=== PATIENT | male | born 1965 | race Caucasian/White ===

== ENCOUNTER 2018-05-30 13:07 | Observation (INO) | payer BC, OTHER ==
[~2018-05-30] VITALS: Ht 170.2 cm; Wt 97.5 kg
[2018-05-30] VITALS (9 sets, daily range): BP systolic 121–160; BP diastolic 79–88
--- OUTSIDE RECORDS SUMMARY | 2018-05-30 13:14 | XMS REPORT | Clinical Summary ---
Author Author Admin, GEOVANNA Organization [facility] Address Unknown Phone Unavailable Allergies, Adverse Reactions, Alerts Allergy Name Reaction Description Start Date Severity Status Provider No Known Allergies Keiko Noble Conditions or Problems Problem Name Problem Code Onset Date Status Entry Date Provider Comment Standard Description Annotate Flu syndrome 487.1 Active Darien Hernandez MD Influenza with other respiratory manifestations Medication List Medication Instructions Start Date Stop Date Generic Name NDC Status Provider Patient Instruction ZITHROMAX Z-ABDOUL 250 MG TABS 2 today, then 1 daily for 4 days 2016 AZITHROMYCIN 14667456333 No Longer Active Diane Chery Active SIMVASTATIN 20 MG TABS 1 tab daily at bedtime SIMVASTATIN 38494120879 Active Darien Hernandez MD Active RITALIN 10 MG TAB 1 TAB PO BID METHYLPHENIDATE HCL 90356432459 Active Darien Hernandez MD Active ZITHROMAX Z-ABDOUL 250 MG TABS 2 today, then 1 daily for 4 days 2016 ZITHROMAX Z-ABDOUL 250 MG TABS 3064315 AZITHROMYCIN Inactive Vital Signs Date Name Value Unit Range Description blood pressure, diastolic - 8462-4 83 mm[Hg] BP bro blood pressure, systolic - 8480-6 133 mm[Hg] BP sys pulse rate E&M - 8867-4 100 /min Heart rate temperature E&M 100.2 [degF] Body temperature weight E&M - 3141-9 215 [lb_av] Weight Measured Diagnostic Results Date Name Value Unit Range Description Lab Report: LORY INFLUENZA A/B - Toxicology rapid flu test Influenza A Positive Negative;Positive Encounters Code Encounter Date Provider Facility CPT-18601 Level 3 Est. Patient 09:28:01 JAWBONE BREAKER Darien Hernandez MD [facility] Procedures Code Procedure Name Date Entry Date Standard Description CPT-01956 Lory Flu A/B - LAB USE ONLY 14:39:20 JAWBONE BREAKER CPT-64963 Myco. Pneumo - LAB USE ONLY 14:39:20 JAWBONE BREAKER CPT-93559 Venipuncture Draw Fee 14:39:19 JAWBONE BREAKER
--- OUTSIDE RECORDS SUMMARY | 2018-05-30 13:14 | XMS REPORT | Clinical Summary ---
Author Author Admin, GEOVANNA Organization [facility] Address Unknown Phone Unavailable Allergies, Adverse Reactions, [...] 1 daily for 4 days 2016 AZITHROMYCIN 25636907695 Active Diane Chery Active SIMVASTATIN 20 MG TABS 1 tab daily at bedtime SIMVASTATIN 99728415867 Active Darien Hernandez MD Active RITALIN 10 MG TAB 1 TAB PO BID METHYLPHENIDATE HCL 66407535781 Active Darien Hernandez MD Active Vital Signs Date Name Value Unit Range Description blood pressure, diastolic - 8462-4 83 mm[Hg] BP bro blood pressure, systolic - 8480-6 133 mm[Hg] BP sys pulse rate E&M - 8867-4 100 /min Heart rate temperature E&M 100.2 [degF] Body temperature weight E&M - 3141-9 215 [lb_av] Weight Measured Diagnostic Results Date Name Value Unit Range Description Lab Report: TERRI INFLUENZA A/B - Toxicology rapid flu test Influenza A Positive Negative;Positive Encounters Code Encounter Date Provider Facility CPT-25924 Level 3 Est. Patient 09:28:01 [facility] Darien Hernandez MD [facility]
--- OUTSIDE RECORDS SUMMARY | 2018-05-30 13:14 | XMS REPORT | Clinical Summary ---
Author Author Admin, GEOVANNA Organization [facility] Address Unknown Phone Unavailable Allergies, Adverse Reactions, Alerts Allergy Name Reaction Description Start Date Severity Status Provider No Known Allergies Neishamaximilian Swenson EDWAR Conditions or Problems Problem Name Problem Code Onset Date Status Entry Date Provider Comment Standard Description Annotate Flu syndrome 487.1 Active Darien Hernandez MD Influenza with other respiratory manifestations Cough 786.2 Active Lety Shrestha APRN Cough Medication List Medication Instructions Start Date Stop Date Generic Name NDC Status Provider Patient Instruction HYDROCODONE-ACETAMINOPHEN 7.5-325 MG ORAL TABLET once daily as needed for pain HYDROCODONE-ACETAMINOPHEN 32534024339 Active Lety Shrestha APRN Active AMBIEN 10 MG ORAL TABLET 1 tab by mouth at bedtime as needed for sleep 07/03 ZOLPIDEM TARTRATE 65581243273 Active Lety Shrestha APRN Active RITALIN 10 MG ORAL TABLET 1 TAB PO BID METHYLPHENIDATE HCL 43289836449 No Longer Active Lety Shrestha APRN Active ZITHROMAX Z-ABDOUL 250 MG ORAL TABLET 2 today, then 1 daily for 4 days AZITHROMYCIN 63095353635 No Longer Active Dianeclemente Gilida Active SIMVASTATIN 20 MG ORAL TABLET 1 tab daily at bedtime SIMVASTATIN 88302111354 Active Darien Hernandez MD Active RITALIN 10 MG ORAL TABLET 1 TAB PO BID RITALIN 10 MG ORAL TABLET 3336244 METHYLPHENIDATE HCL Inactive ZITHROMAX Z-ABDOUL 250 MG ORAL TABLET 2 today, then 1 daily for 4 days ZITHROMAX Z-ABDOUL 250 MG ORAL TABLET 240171 AZITHROMYCIN Inactive Vital Signs Date Name Value Unit Range Description blood pressure, diastolic 82 mm[Hg] BP bro blood pressure, systolic 144 mm[Hg] BP sys height E&M 67 [in_us] Bdy height pulse rate E&M 81 /min Heart rate temperature E&M 98.7 [degF] Body temperature weight E&M 216.5 [lb_av] Weight Measured blood pressure, diastolic 83 mm[Hg] BP bro blood pressure, systolic 133 mm[Hg] BP sys pulse rate E&M 100 /min Heart rate temperature E&M 100.2 [degF] Body temperature weight E&M 215 [lb_av] Weight Measured Diagnostic Results Date Name Value Unit Range Description Lab Report: LORY INFLUENZA A/B - Toxicology rapid flu test Influenza A Positive Negative;Positive Encounters Code Encounter Date Provider Facility CPT-61702 Level 3 Est. Patient 16:57:10 CENTRAL SUPPLY MANAGER Lety Shrestha APRN [facility] CPT-63724 Level 3 Est. Patient 09:28:01 CENTRAL SUPPLY MANAGER Darien Hernandez MD [facility] Procedures Code Procedure Name Date Entry Date Standard Description CPT-14627 Breathing Treatment 16:57:10 CENTRAL SUPPLY MANAGER CPT-99039 Lory Flu A/B - LAB USE ONLY 14:39:20 CENTRAL SUPPLY MANAGER CPT-33772 Myco. Pneumo - LAB USE ONLY 14:39:20 CENTRAL SUPPLY MANAGER CPT-56467 Venipuncture Draw Fee 14:39:19 CENTRAL SUPPLY MANAGER
--- OUTSIDE RECORDS SUMMARY | 2018-05-30 13:14 | XMS REPORT | Clinical Summary ---
Author Author Admin, GEOVANNA Organization [facility] Address Unknown Phone Unavailable Allergies, Adverse Reactions, Alerts Allergy Name Reaction Description Start Date Severity Status Provider No Known Allergies Neisha Swenson EDWAR Conditions or Problems Problem Name [...] once daily as needed for pain HYDROCODONE-ACETAMINOPHEN 37292386722 Active Lety Shrestha APRN Active AMBIEN 10 MG ORAL TABLET 1 tab by mouth at bedtime as needed for sleep 07/03 ZOLPIDEM TARTRATE 36406873403 Active eLty Shrestha APRN Active RITALIN 10 MG ORAL TABLET 1 TAB PO BID METHYLPHENIDATE HCL 08095591778 No Longer Active Lety Shrestha APRN Active ZITHROMAX Z-ABDOUL 250 MG ORAL TABLET 2 today, then 1 daily for 4 days AZITHROMYCIN 69248160530 No Longer Active Dianeclemente Cehry Active SIMVASTATIN 20 MG ORAL TABLET 1 tab daily at bedtime SIMVASTATIN 44642732645 Active Darien Hernandez MD Active RITALIN 10 MG ORAL TABLET 1 TAB PO BID RITALIN 10 MG ORAL TABLET 6561129 METHYLPHENIDATE HCL Inactive ZITHROMAX Z-ABDOUL 250 MG ORAL TABLET 2 today, then 1 daily for 4 days ZITHROMAX Z-ABDOUL 250 MG ORAL TABLET 788712 AZITHROMYCIN Inactive Vital Signs Date Name Value [...] Negative;Positive Encounters Code Encounter Date Provider Facility CPT-66864 Level 3 Est. Patient 16:57:10 CHIEF ADMINISTRATIVE OFFICER Lety Shrestha APRN [facility] CPT-44923 Level 3 Est. Patient 09:28:01 CHIEF ADMINISTRATIVE OFFICER Darien Hernandez MD [facility] Procedures Code Procedure Name Date Entry Date Standard Description CPT-74245 Breathing Treatment 16:57:10 CHIEF ADMINISTRATIVE OFFICER CPT-13887 Lory Flu A/B - LAB USE ONLY 14:39:20 CHIEF ADMINISTRATIVE OFFICER CPT-92465 Myco. Pneumo - LAB USE ONLY 14:39:20 CHIEF ADMINISTRATIVE OFFICER CPT-33849 Venipuncture Draw Fee 14:39:19 CHIEF ADMINISTRATIVE OFFICER
--- OUTSIDE RECORDS SUMMARY | 2018-05-30 13:14 | XMS REPORT | Clinical Summary ---
Author Author Admin, GEOVANNA Organization [facility] Address Unknown Phone Unavailable Allergies, Adverse Reactions, [...] once daily as needed for pain HYDROCODONE-ACETAMINOPHEN 40950892659 Active Lety Shrestha APRN Active AMBIEN 10 MG ORAL TABLET 1 tab by mouth at bedtime as needed for sleep 07/03 ZOLPIDEM TARTRATE 33023304325 Active Lety Shrestha APRN Active RITALIN 10 MG ORAL TABLET 1 TAB PO BID METHYLPHENIDATE HCL 65197753842 No Longer Active Lety Shrestha APRN Active ZITHROMAX Z-ABDOUL 250 MG ORAL TABLET 2 today, then 1 daily for 4 days AZITHROMYCIN 82576096387 No Longer Active Dianeclemente Gilida Active SIMVASTATIN 20 MG ORAL TABLET 1 tab daily at bedtime SIMVASTATIN 71711902846 Active Darien Hernandez MD Active RITALIN 10 MG ORAL TABLET 1 TAB PO BID RITALIN 10 MG ORAL TABLET 1433950 METHYLPHENIDATE HCL Inactive ZITHROMAX Z-ABDOUL 250 MG ORAL TABLET 2 today, then 1 daily for 4 days ZITHROMAX Z-ABDOUL 250 MG ORAL TABLET 857138 AZITHROMYCIN Inactive Vital Signs Date Name Value [...] Negative;Positive Encounters Code Encounter Date Provider Facility CPT-62656 Level 3 Est. Patient 16:57:10 TYPE INSPECTOR Lety Shrestha APRN [facility] CPT-78875 Level 3 Est. Patient 09:28:01 TYPE INSPECTOR Darien Hernandez MD [facility] Procedures Code Procedure Name Date Entry Date Standard Description CPT-30927 Breathing Treatment 16:57:10 TYPE INSPECTOR CPT-43823 Lory Flu A/B - LAB USE ONLY 14:39:20 TYPE INSPECTOR CPT-98285 Myco. Pneumo - LAB USE ONLY 14:39:20 TYPE INSPECTOR CPT-40724 Venipuncture Draw Fee 14:39:19 TYPE INSPECTOR
--- OUTSIDE RECORDS SUMMARY | 2018-05-30 13:14 | XMS REPORT | Clinical Summary ---
Author Author Admin, Wayne Organization [facility] Address Unknown Phone Unavailable Allergies, Adverse Reactions, Alerts Allergy Name Reaction Description Start Date Severity Status Provider No Known Allergies Keiko Real Conditions or Problems Problem Name Problem Code Onset Date Status Entry Date Provider Comment Standard Description Annotate Flu syndrome 487.1 Active Darien Hernandez MD Influenza with other respiratory manifestations Medication List Medication Instructions Start Date Stop Date Generic Name NDC Status Provider Patient Instruction SIMVASTATIN 20 MG TABS 1 tab daily at bedtime SIMVASTATIN 23912833416 Active Darien Hernandez MD Active RITALIN 10 MG TAB 1 TAB PO BID METHYLPHENIDATE HCL 05417459748 Active Darien Hernandez MD Active Vital Signs Date Name Value Unit Range Description blood pressure, diastolic - 8462-4 83 mm[Hg] BP bro blood pressure, systolic - 8480-6 133 mm[Hg] BP sys pulse rate E&M - 8867-4 100 /min Heart rate temperature E&M 100.2 [degF] Body temperature weight E&M - 3141-9 215 [lb_av] Weight Measured Encounters Code Encounter Date Provider Facility CPT-10337 Level 3 Est. Patient 09:28:01 STATION AGENT Darien Hernandez MD [facility]
--- OUTSIDE RECORDS SUMMARY | 2018-05-30 13:14 | XMS REPORT | Clinical Summary ---
Author Author Admin, GEOVANNA Organization [facility] Address Unknown Phone Unavailable Allergies, Adverse Reactions, [...] 1 daily for 4 days 2016 AZITHROMYCIN 33296506204 No Longer Active Diane Chery Active SIMVASTATIN 20 MG TABS 1 tab daily at bedtime SIMVASTATIN 84746255959 Active Darien Hernandez MD Active RITALIN 10 MG TAB 1 TAB PO BID METHYLPHENIDATE HCL 60283197527 Active Darien Hernandez MD Active ZITHROMAX Z-ABDOUL 250 MG TABS 2 today, then 1 daily for 4 days 2016 ZITHROMAX Z-ABDOLU 250 MG TABS 4055845 AZITHROMYCIN Inactive Vital Signs Date Name Value [...] Negative;Positive Encounters Code Encounter Date Provider Facility CPT-84849 Level 3 Est. Patient 09:28:01 EDGE STITCHER Darien Hernandez MD [facility] Procedures Code Procedure Name Date Entry Date Standard Description CPT-16657 Lory Flu A/B - LAB USE ONLY 14:39:20 EDGE STITCHER CPT-58041 Myco. Pneumo - LAB USE ONLY 14:39:20 EDGE STITCHER CPT-20473 Venipuncture Draw Fee 14:39:19 EDGE STITCHER
--- OUTSIDE RECORDS SUMMARY | 2018-05-30 13:14 | XMS REPORT | Clinical Summary ---
[...] 1 daily for 4 days 2016 AZITHROMYCIN 44291818573 Active Diane Chery Active SIMVASTATIN 20 MG TABS 1 tab daily at bedtime SIMVASTATIN 76335683127 Active Darien Hernandez MD Active RITALIN 10 MG TAB 1 TAB PO BID METHYLPHENIDATE HCL 29110920214 Active Darien Hernandez MD Active Vital Signs [...] Negative;Positive Encounters Code Encounter Date Provider Facility CPT-40028 Level 3 Est. Patient 09:28:01 [facility] Darien Hernandez MD [facility]
--- OUTSIDE RECORDS SUMMARY | 2018-05-30 13:14 | XMS REPORT | Clinical Summary ---
Author Author Admin, GEOVANNA Organization [facility] Address Unknown Phone Unavailable Allergies, Adverse [...] 1 daily for 4 days 2016 AZITHROMYCIN 08528167784 No Longer Active Diane Chery Active SIMVASTATIN 20 MG TABS 1 tab daily at bedtime SIMVASTATIN 99735514435 Active Darien Hernandez MD Active RITALIN 10 MG TAB 1 TAB PO BID METHYLPHENIDATE HCL 11887992602 Active Darien Hernandez MD Active ZITHROMAX Z-ABDOUL 250 MG TABS 2 today, then 1 daily for 4 days 2016 ZITHROMAX Z-ABDOUL 250 MG TABS 4483163 AZITHROMYCIN Inactive Vital Signs Date Name Value [...] Negative;Positive Encounters Code Encounter Date Provider Facility CPT-66810 Level 3 Est. Patient 09:28:01 DRILLER AND REAMER Darien Hernandez MD [facility] Procedures Code Procedure Name Date Entry Date Standard Description CPT-10460 Terri Flu A/B - LAB USE ONLY 14:39:20 DRILLER AND REAMER CPT-30572 Myco. Pneumo - LAB USE ONLY 14:39:20 DRILLER AND REAMER CPT-34754 Venipuncture Draw Fee 14:39:19 DRILLER AND REAMER
--- OUTSIDE RECORDS SUMMARY | 2018-05-30 13:14 | XMS REPORT | Clinical Summary ---
Author Author Admin, GEOVANNA Organization [facility] Address Unknown Phone Unavailable [...] once daily as needed for pain HYDROCODONE-ACETAMINOPHEN 13152296135 Active Lety Shrestha APRN Active AMBIEN 10 MG ORAL TABLET 1 tab by mouth at bedtime as needed for sleep 07/03 ZOLPIDEM TARTRATE 24593734313 Active Lety Shrestha APRN Active RITALIN 10 MG ORAL TABLET 1 TAB PO BID METHYLPHENIDATE HCL 59830348962 No Longer Active Lety Shrestha APRN Active ZITHROMAX Z-ABDOUL 250 MG ORAL TABLET 2 today, then 1 daily for 4 days AZITHROMYCIN 50828048451 No Longer Active Dianeclemente Chery Active SIMVASTATIN 20 MG ORAL TABLET 1 tab daily at bedtime SIMVASTATIN 20393548706 Active Darien Hernandez MD Active RITALIN 10 MG ORAL TABLET 1 TAB PO BID RITALIN 10 MG ORAL TABLET 4049775 METHYLPHENIDATE HCL Inactive ZITHROMAX Z-ABDOUL 250 MG ORAL TABLET 2 today, then 1 daily for 4 days ZITHROMAX Z-ABDOUL 250 MG ORAL TABLET 546989 AZITHROMYCIN Inactive Vital Signs Date Name Value [...] Negative;Positive Encounters Code Encounter Date Provider Facility CPT-55058 Level 3 Est. Patient 16:57:10 MAIL HANDLER Lety Shrestha APRN [facility] CPT-63478 Level 3 Est. Patient 09:28:01 MAIL HANDLER Darien Hernandez MD [facility] Procedures Code Procedure Name Date Entry Date Standard Description CPT-43588 Breathing Treatment 16:57:10 MAIL HANDLER CPT-96799 Lory Flu A/B - LAB USE ONLY 14:39:20 MAIL HANDLER CPT-42516 Myco. Pneumo - LAB USE ONLY 14:39:20 MAIL HANDLER CPT-51092 Venipuncture Draw Fee 14:39:19 MAIL HANDLER
--- OUTSIDE RECORDS SUMMARY | 2018-05-30 13:14 | XMS REPORT | Clinical Summary ---
Author Author Admin, GEOVANNA Organization [facility] Address Unknown Phone Unavailable Allergies, Adverse [...] 1 daily for 4 days 2016 AZITHROMYCIN 14651998513 Active Diane Gilida Active SIMVASTATIN 20 MG TABS 1 tab daily at bedtime SIMVASTATIN 00249255410 Active Darien Hernandez MD Active RITALIN 10 MG TAB 1 TAB PO BID METHYLPHENIDATE HCL 32016658282 Active Darien Hernandez MD Active Vital Signs [...] Negative;Positive Encounters Code Encounter Date Provider Facility CPT-81133 Level 3 Est. Patient 09:28:01 [facility] Darien Hernandez MD [facility]
--- OUTSIDE RECORDS SUMMARY | 2018-05-30 13:15 | XMS REPORT | Clinical Summary ---
Author Author Admin, GEOVANNA Organization [facility] Address Unknown Phone Unavailable Allergies, [...] TABS 1 tab daily at bedtime SIMVASTATIN 28433047001 Active Darien Hernandez MD Active RITALIN 10 MG TAB 1 TAB PO BID METHYLPHENIDATE HCL 33205122729 Active Darien Hernandez MD Active Vital Signs [...] Negative;Positive Encounters Code Encounter Date Provider Facility CPT-13317 Level 3 Est. Patient 09:28:01 CHILD CARE SITTER Darien Hernandez MD [facility]
--- OUTSIDE RECORDS SUMMARY | 2018-05-30 13:15 | XMS REPORT | Clinical Summary ---
Author Author Admin, GEOVANNA Organization [facility] Address Unknown Phone Unavailable Allergies, Adverse [...] 1 daily for 4 days 2016 AZITHROMYCIN 68724347633 No Longer Active Diane Chery Active SIMVASTATIN 20 MG TABS 1 tab daily at bedtime SIMVASTATIN 91604098148 Active Darien Hernandez MD Active RITALIN 10 MG TAB 1 TAB PO BID METHYLPHENIDATE HCL 52855012698 Active Darien Hernandez MD Active ZITHROMAX Z-ABDOUL 250 MG TABS 2 today, then 1 daily for 4 days 2016 ZITHROMAX Z-ABDOUL 250 MG TABS 6359068 AZITHROMYCIN Inactive Vital Signs Date Name Value [...] Negative;Positive Encounters Code Encounter Date Provider Facility CPT-87527 Level 3 Est. Patient 09:28:01 PIECE MARKER SMALL ARMS Darien Hernandez MD [facility]
--- OUTSIDE RECORDS SUMMARY | 2018-05-30 13:15 | XMS REPORT | Clinical Summary ---
Author Author Admin, [facility] Organization [facility] Address Unknown Phone Unavailable Allergies, [...] TABS 1 tab daily at bedtime SIMVASTATIN 46755590605 Active Darine Hernandez MD Active RITALIN 10 MG TAB 1 TAB PO BID METHYLPHENIDATE HCL 86949800833 Active Darien Hernandez MD Active Vital Signs Date Name Value Unit Range Description blood pressure, diastolic - 8462-4 83 mm[Hg] BP bro blood pressure, systolic - 8480-6 133 mm[Hg] BP sys pulse rate E&M - 8867-4 100 /min Heart rate temperature E&M 100.2 [degF] Body temperature weight E&M - 3141-9 215 [lb_av] Weight Measured Encounters Code Encounter Date Provider Facility CPT-98633 Level 3 Est. Patient 09:28:01 PIPE WELDER Darien Hernandez MD [facility]
--- OUTSIDE RECORDS SUMMARY | 2018-05-30 13:15 | XMS REPORT | Continuity of Care Document ---
Author Author [facility] Address Unknown Phone Unavailable Allergies Active Description Code Type Severity Reaction Onset Reported/Identified Relationship to Patient Clinical Status Yes No Known Medication Allergies Drug N/A N/A Medications There is no data. Problems Date Dx Coded Attending Type Code Diagnosis Diagnosed By 07/14/2017 R05 Cough Procedures There is no data. Results There is no data. Encounters ACCT No. Visit Date/Time Discharge Status Pt. Type Provider Facility Loc./Unit Complaint [id number] 05/20/2018 14:47:00 [facility] Unknown [email or web address] 08/03/2016 01:51:59 ACT Document Registration [id number] 07/03/2017 10:33:00 07/03/2017 11:50:00 DIS Emergency KAY BAÑUELOS [facility] ED ed visit
--- OUTSIDE RECORDS SUMMARY | 2018-05-30 13:15 | XMS REPORT | Clinical Summary ---
Author Author Admin, GEOVANNA Organization [facility] Address Unknown Phone Unavailable Allergies, Adverse Reactions, [...] once daily as needed for pain HYDROCODONE-ACETAMINOPHEN 39035258543 Active Lety Shrestha APRN Active AMBIEN 10 MG ORAL TABLET 1 tab by mouth at bedtime as needed for sleep 07/03 ZOLPIDEM TARTRATE 57949595937 Active Lety Shrestha APRN Active RITALIN 10 MG ORAL TABLET 1 TAB PO BID METHYLPHENIDATE HCL 31797559712 No Longer Active Lety Shrestha APRN Active ZITHROMAX Z-ABDOUL 250 MG ORAL TABLET 2 today, then 1 daily for 4 days AZITHROMYCIN 52805410914 No Longer Active Dianeclemente Chery Active SIMVASTATIN 20 MG ORAL TABLET 1 tab daily at bedtime SIMVASTATIN 22542123185 Active Darien Hernandez MD Active RITALIN 10 MG ORAL TABLET 1 TAB PO BID RITALIN 10 MG ORAL TABLET 2086046 METHYLPHENIDATE HCL Inactive ZITHROMAX Z-ABDOUL 250 MG ORAL TABLET 2 today, then 1 daily for 4 days ZITHROMAX Z-ABDOUL 250 MG ORAL TABLET 371394 AZITHROMYCIN Inactive Vital Signs Date Name Value [...] Negative;Positive Encounters Code Encounter Date Provider Facility CPT-92777 Level 3 Est. Patient 16:57:10 DENTAL ASSISTANT MEDICAL ASSISTANT Lety Shrestha APRN [facility] CPT-69980 Level 3 Est. Patient 09:28:01 DENTAL ASSISTANT MEDICAL ASSISTANT Darien Hernandez MD [facility] Procedures Code Procedure Name Date Entry Date Standard Description CPT-59085 Breathing Treatment 16:57:10 DENTAL ASSISTANT MEDICAL ASSISTANT CPT-24630 Lory Flu A/B - LAB USE ONLY 14:39:20 DENTAL ASSISTANT MEDICAL ASSISTANT CPT-36346 Myco. Pneumo - LAB USE ONLY 14:39:20 DENTAL ASSISTANT MEDICAL ASSISTANT CPT-62088 Venipuncture Draw Fee 14:39:19 DENTAL ASSISTANT MEDICAL ASSISTANT
--- OUTSIDE RECORDS SUMMARY | 2018-05-30 13:15 | XMS REPORT | Clinical Summary ---
[...] once daily as needed for pain HYDROCODONE-ACETAMINOPHEN 36261802873 Active Lety Shrestha APRN Active AMBIEN 10 MG ORAL TABLET 1 tab by mouth at bedtime as needed for sleep 07/03 ZOLPIDEM TARTRATE 60792247035 Active Lety Shrestha APRN Active RITALIN 10 MG ORAL TABLET 1 TAB PO BID METHYLPHENIDATE HCL 91794277328 No Longer Active Lety Shrestha APRN Active ZITHROMAX Z-ABDOUL 250 MG ORAL TABLET 2 today, then 1 daily for 4 days AZITHROMYCIN 19489368000 No Longer Active Dianeclemente Chery Active SIMVASTATIN 20 MG ORAL TABLET 1 tab daily at bedtime SIMVASTATIN 59925798129 Active Darien Hernandez MD Active RITALIN 10 MG ORAL TABLET 1 TAB PO BID RITALIN 10 MG ORAL TABLET 2848452 METHYLPHENIDATE HCL Inactive ZITHROMAX Z-ABDOUL 250 MG ORAL TABLET 2 today, then 1 daily for 4 days ZITHROMAX Z-ABDOUL 250 MG ORAL TABLET 423903 AZITHROMYCIN Inactive Vital Signs Date Name Value [...] Negative;Positive Encounters Code Encounter Date Provider Facility CPT-45144 Level 3 Est. Patient 16:57:10 MACHINE DESIGNER Lety Shrestha APRN [facility] CPT-76059 Level 3 Est. Patient 09:28:01 MACHINE DESIGNER Darien Hernandez MD [facility] Procedures Code Procedure Name Date Entry Date Standard Description CPT-08395 Breathing Treatment 16:57:10 MACHINE DESIGNER CPT-03273 Lory Flu A/B - LAB USE ONLY 14:39:20 MACHINE DESIGNER CPT-47078 Myco. Pneumo - LAB USE ONLY 14:39:20 MACHINE DESIGNER CPT-03663 Venipuncture Draw Fee 14:39:19 MACHINE DESIGNER
--- OUTSIDE RECORDS SUMMARY | 2018-05-30 13:15 | XMS REPORT | Clinical Summary ---
Author Author Admin, GEOVANNA Organization [facility] Address Unknown Phone Unavailable Allergies, [...] 1 daily for 4 days 2016 AZITHROMYCIN 63737723274 No Longer Active Diane Chery Active SIMVASTATIN 20 MG TABS 1 tab daily at bedtime SIMVASTATIN 60722289919 Active Darien Hernandez MD Active RITALIN 10 MG TAB 1 TAB PO BID METHYLPHENIDATE HCL 19281821144 Active Darien Hernandez MD Active ZITHROMAX Z-ABDOUL 250 MG TABS 2 today, then 1 daily for 4 days 2016 ZITHROMAX Z-ABDOUL 250 MG TABS 6772027 AZITHROMYCIN Inactive Vital Signs Date Name Value [...] Negative;Positive Encounters Code Encounter Date Provider Facility CPT-48896 Level 3 Est. Patient 09:28:01 FILTERER Darien Hernandez MD [facility] Procedures Code Procedure Name Date Entry Date Standard Description CPT-97026 Lory Flu A/B - LAB USE ONLY 14:39:20 FILTERER CPT-15971 Myco. Pneumo - LAB USE ONLY 14:39:20 FILTERER CPT-74528 Venipuncture Draw Fee 14:39:19 FILTERER
[2018-05-30] MEDS ORDERED: NS IV 1000 ML 1,000 ML IV ONE (13:24)
[2018-05-30 13:29] LABS: BASOPHILS # (AUTO) 0.1 10^3/uL (0.0-0.1); BASOPHILS % (AUTO) 1 % (0-10); EOSINOPHILS # (AUTO) 0.1 10^3/uL (0.0-0.3); EOSINOPHILS % (AUTO) 2 % (0-10); HEMATOCRIT 47 % (40-54); HEMOGLOBIN 16.3 G/DL (13.3-17.7); LYMPHOCYTES # (AUTO) 1.6 X 10^3 (1.0-4.0); LYMPHOCYTES % (AUTO) 27 % (12-44); MEAN CORPUSCULAR HEMOGLOBIN 32 PG (25-34); MEAN CORPUSCULAR HGB CONC 35 G/DL (32-36); MEAN CORPUSCULAR VOLUME 91 FL (80-99); MEAN PLATELET VOLUME 8.9 FL (7.4-10.4); MONOCYTES # (AUTO) 0.6 X 10^3 (0.0-1.0); MONOCYTES % (AUTO) 9 % (0-12); NEUTROPHILS # (AUTO) 3.6 X 10^3 (1.8-7.8); NEUTROPHILS % (AUTO) 62 % (42-75); PLATELET COUNT 299 10^3/uL (130-400); RED BLOOD COUNT 5.17 10^6/uL (4.35-5.85); RED CELL DISTRIBUTION WIDTH 12.8 % (10.0-14.5); WHITE BLOOD COUNT 5.9 10^3/uL (4.3-11.0)
[2018-05-30] MEDS ORDERED: ASPIRIN 81 MG CHEW (CHILDREN'S ASA) PO ONE (13:30)
[2018-05-30] MEDS ORDERED: NITROGLYCERIN 0.4 MG SL TABS BTL 25'S SL PRN (13:30)
--- NOTE | 2018-05-30 13:39 | ED Chest Pain ---
General Chief Complaint: Chest Pain Stated Complaint: CHEST PRESSURE Nursing Triage Note: PT STATES HE HAS BEEN EXPERIENCING CHEST TIGHTNESS FOR THE LAST WEEK THAT HAS OCCASIONALLY WOKE HIM UP OUT OF SLEEP WITH DISCOMFORT. Nursing Sepsis Screen: No Definite Risk Source: patient Exam Limitations: no limitations History of Present Illness Date Seen by Provider: May 30, 2018 Time Seen by Provider: 13:14 Initial Comments This 53-year-old gentleman presents to emergency room with complaints of chest tightness intermittently for about a week. Pain is in the left chest and radiates into the axilla and down the left arm. He describes it as an ache. His discomfort is currently rated as 3/10 and was 6/10 at its worst. Patient had some nitroglycerin tablets left over from a hospital encounter a few years ago. He has taken a few of these over the past couple of days. They do seem to improve his discomfort. The last dose he took was around noon today. It did reduce his pain. Patient has no known heart disease. He was previously worked up with a stress test at [facility] and in [place] at [place] [facility]. His last test was done at [place] [facility] about 5 years ago. It was normal to his knowledge. He never did follow-up. Patient has history of hyperlipidemia. He has been out of his statin for about 2 months. His primary care provider, Dr. Hanson, has retired, and he needs to find a new physician. He has not identified any specific alleviating or exacerbating factors. His pain has woken him a couple times in the night over the past few nights. He also has had some nausea at night which she has associated with GERD. He chews tobacco but has not been a smoker. He has strong family history of cardiovascular disease in both parents. He states his father around age 55 of cardiac disease. Allergies and Home Medications Allergies Coded Allergies: No Known Drug Allergies (Unverified , 05/30/18) Home Medications Pantoprazole Sodium 40 Mg Tablet., 40 MG PO DAILY, (Reported) Patient Home Medication List Home Medication List Reviewed: Yes Review of Systems Review of Systems Constitutional: no symptoms reported EENTM: No Symptoms Reported Respiratory: No Symptoms Reported Cardiovascular: See HPI Gastrointestinal: See HPI Genitourinary: No Symptoms Reported Musculoskeletal: no symptoms reported Skin: no symptoms reported Psychiatric/Neurological: No Symptoms Reported Endocrine: No Symptoms Reported Hematologic/Lymphatic: No Symptoms Reported Past Nztyyyq-Fkuzgi-Vilztw Hx Past Med/Social Hx: Reviewed and Corrections made Patient Social History Alcohol Use: Occasionally Uses Recreational Drug Use: No Smoking Status: Never a Smoker Recent Foreign Travel: No Contact w/Someone Who Travel: No Recent Infectious Disease Expo: No Past Medical History Surgeries: Yes Abdominal (hernia repair), Orthopedic (knee) Respiratory: No Cardiac: Yes High Cholesterol Neurological: No Reproductive Disorders: No Genitourinary: No Gastrointestinal: Yes Gastroesophageal Reflux Musculoskeletal: No HEENT: No Cancer: No Psychosocial: No Integumentary: No Family Medical History Reviewed and Corrections made CAD Under 55 Years Old Physical Exam Vital Signs Vital Signs - First Documented 05/30/18 13:09 Temp 98.2 Pulse 83 Resp 20 B/P (MAP) 129/90 (103) Pulse Ox 96 O2 Delivery Room Air Capillary Refill : Less Than 3 Seconds Height, Weight, BMI Height: 5'7.00" Weight: 215lbs. oz. 97.153842cg; BMI Method:Stated General Appearance: No Apparent Distress, WD/WN HEENT: PERRL/EOMI, Normal ENT Inspection Neck: Normal Inspection Respiratory: Chest Non Tender, Lungs Clear, Normal Breath Sounds, No Accessory Muscle Use, No Respiratory Distress Cardiovascular: Regular Rate, Rhythm, No Edema, No Murmur, Normal Peripheral Pulses Gastrointestinal: Normal Bowel Sounds, Non Tender, Soft Extremity: Normal Inspection, No Calf Tenderness, No Pedal Edema, Other ( negative Altaf) Neurologic/Psychiatric: Alert, Oriented x3, No Motor/Sensory Deficits, Normal Mood/Affect, waste hand II-XII Norm as Tested Skin: Normal Color, Warm/Dry Progress/Results/Core Measures Results/Orders Lab Results Laboratory Tests Test 05/30/18 13:18 Range/Units White Blood Count 5.9 4.3-11.0 10^3/uL Red Blood Count 5.17 4.35-5.85 10^6/uL Hemoglobin 16.3 13.3-17.7 G/DL Hematocrit 47 40-54 % Mean Corpuscular Volume 91 80-99 FL Mean Corpuscular Hemoglobin 32 25-34 PG Mean Corpuscular Hemoglobin Concent 35 32-36 G/DL Red Cell Distribution Width 12.8 10.0-14.5 % Platelet Count 299 130-400 10^3/uL Mean Platelet Volume 8.9 7.4-10.4 FL Neutrophils (%) (Auto) 62 42-75 % Lymphocytes (%) (Auto) 27 12-44 % Monocytes (%) (Auto) 9 0-12 % Eosinophils (%) (Auto) 2 0-10 % Basophils (%) (Auto) 1 0-10 % Neutrophils # (Auto) 3.6 1.8-7.8 X 10^3 Lymphocytes # (Auto) 1.6 1.0-4.0 X 10^3 Monocytes # (Auto) 0.6 0.0-1.0 X 10^3 Eosinophils # (Auto) 0.1 0.0-0.3 10^3/uL Basophils # (Auto) 0.1 0.0-0.1 10^3/uL Prothrombin Time 13.6 12.2-14.7 SEC INR Comment 1.0 0.8-1.4 Activated Partial Thromboplast Time 31 24-35 SEC Sodium Level 141 135-145 MMOL/L Potassium Level 3.8 3.6-5.0 MMOL/L Chloride Level 108 H 98-107 MMOL/L Carbon Dioxide Level 24 21-32 MMOL/L Anion Gap 9 5-14 MMOL/L Blood Urea Nitrogen 9 7-18 MG/DL Creatinine 1.19 0.60-1.30 MG/DL Estimat Glomerular Filtration Rate > 60 BUN/Creatinine Ratio 8 Glucose Level 97 70-105 MG/DL Calcium Level 9.4 8.5-10.1 MG/DL Corrected Calcium 8.5-10.1 MG/DL Magnesium Level 2.5 H 1.8-2.4 MG/DL Total Bilirubin 0.5 0.1-1.0 MG/DL Aspartate Amino Transf (AST/SGOT) 25 5-34 U/L Alanine Aminotransferase (ALT/SGPT) 48 0-55 U/L Alkaline Phosphatase 62 40-136 U/L Myoglobin 25.0 10.0-92.0 NG/ML Troponin I < 0.30 <0.30 NG/ML Total Protein 7.1 6.4-8.2 GM/DL Albumin 4.6 H 3.2-4.5 GM/DL My Orders Orders - FIORDALIZA GARNICA MD Ekg Tracing (05/30/18 13:09) Cbc With Automated Diff (05/30/18 13:23) Magnesium (05/30/18 13:23) Chest 1 View, Ap/Pa Only (05/30/18 13:23) Cardiac Profile 1 (05/30/18 13:23) Comprehensive Metabolic Panel (05/30/18 13:23) Myoglobin Serum (05/30/18 13:23) Protime With Inr (05/30/18 13:23) Partial Thromboplastin Time (05/30/18 13:) O2 (05/30/18 13:23) Monitor-Rhythm Ecg Trace Only (05/30/18 13:23) Lipid Panel (05/31/18 06:00) Aspirin Chewable Tablet (Baby Aspirin Ch (05/30/18 13:30) Nitroglycerin 0.4 Mg Btl 25's (Nitrostat (05/30/18 13:30) Saline Lock/Iv-Start (05/30/18 13:23) Ns Iv 1000 Ml (Sodium Chloride 0.9%) (05/30/18 13:24) Medications Given in ED Current Medications Medications Dose Ordered Sig/Isha Route Start Time Stop Time Status Last Admin Dose Admin Aspirin 324 mg ONCE ONCE PO 05/30/18 13:30 05/30/18 13:31 DC 05/30/18 13:24 324 MG Nitroglycerin 0.4 mg UD PRN SL 05/30/18 13:30 05/30/18 13:26 0.4 MG Sodium Chloride 1,000 ml @ 0 mls/hr Q0M ONCE IV 05/30/18 13:24 05/30/18 13:25 DC 05/30/18 13:28 1,000 MLS/HR Vital Signs/I&O 05/30/18 05/30/18 05/30/18 13:09 13:09 13:10 Temp 98.2 Pulse 83 Resp 20 B/P (MAP) 129/90 (103) Pulse Ox 96 95 O2 Delivery Room Air Room Air Room Air Blood Pressure Mean: 103 Progress Progress Note #1: Time: 13:43 Progress Note Patient received aspirin and one dose of nitroglycerin which significantly improved his discomfort. He still has some minimal lingering discomfort. EKG showed no significant abnormalities. Progress Note #2: Time: 14:55 Progress Note Workup was unremarkable. Patient's pain improved with a single nitroglycerin and did not rebound. He had minimal discomfort at the time of admission. A liter of IV normal saline was started before nitroglycerin was given. Case was discussed with Dr. Castellanos and Dr. Rodriguez. Given patient's social circumstances living in [place] and not having a current cardiology or primary care team, and with Thanksgiving a couple days away, I felt it was best for him to be admitted for observation. Dr. Castellanos and patient were agreeable. Initial ECG Impression Date: May 30, 2018 Initial ECG Impression Time: 13:14 Initial ECG Rate: 84 Initial ECG Rhythm: Normal Sinus Initial ECG Intervals: Normal Initial ECG Impression: Normal Comment Normal sinus rhythm with no ST elevation or depression. No abnormal intervals or axis deviation. Diagnostic Imaging Diagonstic Imaging: Xray Plain Films/CT/US/NM/MRI: chest Comments Chest x-ray viewed by me and report reviewed. See report below: NAME: ARIS VARGAS [facility] REC#: [id number] PT STATUS: REG ER : 1965 PHYSICIAN: FIORDALIZA GARNICA MD ADMIT DATE: 05/30/18/ER Draft Date of Exam:05/30/18 CHEST 1 VIEW, AP/PA ONLY INDICATION: Chest discomfort FINDINGS: The lungs are clear. Heart size and vascularity are unremarkable. No effusion or pneumothorax. No free air beneath the diaphragms. IMPRESSION: No abnormality identified. Dictated on workstation # [id number] Dict: 05/30/18 1353 Trans: 05/30/18 1358 [facility] [id number] Interpreted by: MING VALLE Departure Communication (Admissions) Time/Spoke to Admitting Phy: 14:28 Dr. Rodriguez Time/Spoke to Consulting Phy: 14:11 Dr. Castellanos Impression Primary Impression: Chest pain Qualified Codes: R07.9 - Chest pain, unspecified Disposition: 09 ADMITTED INPATIENT Condition: Improved Admissions Decision to Admit Reason: Admit from ER (General) Decision to Admit/Date: May 30, 2018 Time/Decision to Admit Time: 14:15 FIORDALIZA GARNICA MD May 30, 2018 13:39
[2018-05-30 13:48] LABS: PROTHROMBIN TIME PATIENT 13.6 SEC (12.2-14.7)
[2018-05-30 13:54] LABS: ALANINE AMINOTRANSFERASE 48 U/L (0-55); ALBUMIN 4.6 GM/DL (3.2-4.5); ALKALINE PHOSPHATASE 62 U/L (40-136); BILIRUBIN,TOTAL 0.5 MG/DL (0.1-1.0); BUN/CREATININE RATIO 8; CALCIUM 9.4 MG/DL (8.5-10.1); CARBON DIOXIDE 24 MMOL/L (21-32); CHLORIDE 108 MMOL/L (98-107); CREATININE SERUM 1.19 MG/DL (0.60-1.30); GFR ESTIMATED > 60; GLUCOSE 97 MG/DL (70-105); MAGNESIUM 2.5 MG/DL (1.8-2.4); POTASSIUM 3.8 MMOL/L (3.6-5.0); SODIUM 141 MMOL/L (135-145); TOTAL PROTEIN 7.1 GM/DL (6.4-8.2)
[2018-05-30] MEDS ORDERED: SIMV5TAB6 PO (13:57)
[2018-05-30] MEDS ORDERED: PANT40TA3 PO (13:57)
--- NOTE | 2018-05-30 13:58 | Diagnostic Imaging Report ---
INDICATION: Chest discomfort FINDINGS: The lungs are clear. Heart size and vascularity are unremarkable. No effusion or pneumothorax. No free air beneath the diaphragms. IMPRESSION: No abnormality identified. Dictated by: Dictated on workstation # [id number]
--- OUTSIDE RECORDS SUMMARY | 2018-05-30 14:47 | XMS REPORT | Continuity of Care Document ---
Author Author [facility] Address Unknown Phone Unavailable Allergies Active Description [...] Status Pt. Type Provider Facility Loc./Unit Complaint [id number] 05/20/2018 14:47:00 ACT Unknown [id number] 08/03/2016 01:51:59 ACT Document Registration [id number] 07/03/2017 10:33:00 07/03/2017 11:50:00 DIS Emergency KAY BAÑUELOS [facility] ED ed visit
[2018-05-30] MEDS ORDERED: SIMV20TA3 PO (15:23)
[2018-05-30] MEDS ORDERED: ZOLP10TA5 PO (15:23)
[2018-05-30] MEDS ORDERED: FLU QUADRIvalent (5+ YOA) 2018-2019 (AFLURIA) 0.5 ML IM ONE (15:30)
--- NOTE | 2018-05-30 16:10 | Consultation-Cardiology ---
HPI-Cardiology Cardiology Consultation: Date of Consultation 05/30/18 Date of Admission Attending Physician Iman Rodriguez MD Admitting Physician No,Local Physician Consulting Physician Stewart CASTELLANOS MD HPI: Time Seen by a Provider: 19:00 Chief Complaint: Chest pain This is a 53 year old gentleman with history of hyperlipidemia and premature family history of CAD. He presents with off and on chest pain x 1 week. Longest chest pain episode x 20 minutes. SS, radiation to the left arm associated with nausea, shortness of breath. No syncope, near syncope or palpitations. Moderate intensity with no exacerbating or relieving factors. Review of Systems-Cardiology Review of Systems Constitutional: As described under HPI; No As described under HPI, No no symptoms reported, No chills, No fever, No lightheadedness Eyes: No As described under HPI, No no symptoms reported, No blindness, No blurred vision, No contact lenses, No drainage, No decreased acuity, No foreign body sensation, No pain, No vision change Ears/Nose/Throat: No As described under HPI, No no symptoms reported, No chronic hearing loss, No ear discharge, No ear pain, No nasal drainage, No ulcerations Respiratory: No no symptoms reported; As described under HPI; No As described under HPI, No cough, No orthopnea; shortness of breath; No SOB with excertion Cardiovascular: No no symptoms reported; As described under HPI; No As described under HPI; chest pain; No edema, No irregular heart rate, No lightheadedness, No palpitations Gastrointestinal: No no symptoms reported, No As described under HPI, No abdomen distended, No abdominal pain, No blood streaked bowels, No constipation , No diarrhea, No nausea, No vomiting, No stool coloration changes Genitourinary: No As described under HPI, No burning, No dysuria, No discharge , No frequency, No flank pain, No hematuria, No urgency Skin: No rash, No skin related problems, No ulcerations Psychiatric/Neurological: No anxiety, No depression, No seizure, No focal weakness, No syncope Hematologic: No bleeding abnormalities PKB-Dniiau-Zbsplg Hx Patient Social History Alcohol Use: Occasionally Uses Recreational Drug Use: No Smoking Status: Never a Smoker Recent Foreign Travel: No Recent Infectious Disease Expo: No Hospitalization with Isolation: Denies Physical Abuse Screen: No Sexual Abuse: No Past Medical History PMH As described under Assessment. Family Medical History Family History: Cardiovascular disease 19 FATHER 19 MOTHER (Skin Cancer) G8 BROTHER Congenital heart disease Diabetes mellitus 19 MOTHER (Skin Cancer) Myocardial infarction G8 BROTHER Allergies and Home Medications Allergies Coded Allergies: No Known Drug Allergies (Unverified , 05/30/18) Home Medications Pantoprazole Sodium 40 Mg Tablet.dr, 40 MG PO HS, (Reported) Simvastatin 20 Mg Tablet, 20 MG PO HS, (Reported) LAST FILLED #90 01-31-18 Zolpidem Tartrate 10 Mg Tablet, 10 MG PO HS, (Reported) Patient Home Medication List Home Medication List Reviewed: Yes Physical Exam-Cardiology Physical Exam Vital Signs/I&O 05/30/18 05/30/18 05/30/18 05/30/18 13:09 13:09 13:10 14:44 Temp 98.2 98.1 Pulse 83 74 Resp 20 20 B/P (MAP) 129/90 (103) 150/61 (90) Pulse Ox 96 95 96 O2 Delivery Room Air Room Air Room Air Room Air 05/30/18 05/30/18 05/30/18 05/30/18 15:30 15:46 16:16 16:31 Temp 98.4 98.1 97.9 97.6 Pulse 68 70 71 75 Resp 20 20 20 20 B/P (MAP) 121/79 (93) 131/81 (98) 149/85 (106) 160/88 (112) Pulse Ox 97 96 98 98 O2 Delivery Room Air Room Air Room Air Room Air 05/30/18 05/30/18 05/30/18 05/30/18 17:30 18:30 19:00 19:30 Temp 97.7 97.9 97.1 Pulse 73 70 75 69 Resp 20 20 20 B/P (MAP) 133/83 (100) 134/81 (98) 135/84 (101) Pulse Ox 97 96 96 O2 Delivery Room Air Room Air Room Air Capillary Refill : Less Than 3 Seconds Constitutional: appears stated age, AAO x 3; No apparent distress; well- developed, well-nourished HEENT: PERRL; No normal ENT inspection, No TMs normal, No pharynx normal, No scleral icterus (R), No scleral icterus (L), No pale conjunctivae (R), No pale conjunctivae (L), No photophobia, No TM abnormal (R), No TM abnormal (L), No pharyngeal erythema, No tonsillar exudate, No other, No discharge, No EOMI; hearing is well preserved; No hard of hearing; oral hygience is good; No ulceration, No xanthelasmas are seen Neck: No non-tender, No full range of motion, No supple, No normal inspection, No carotid bruit, No limited range of motion, No lymphadenopathy (R), No lymphadenopathy (L), No tender lateral, No tender midline, No thyromegaly, No other; carotid pulses are 2 + bilaterally; No with good upstrokes Respiratory: No accessory muscle use, No respiratory distress, No chest tender , No chest expansion is symmetric; chest is bilaterally symmetric; No lungs clear to percussion; lungs clear to auscultation; No crackles, No rhonchi, No rales, No stridor, No wheezing, No pleural rub, No other Cardiovascular: regular rate-rhythm; No irregularly irregular, No extra beats, No parasternal heave is noted, No JVD, No edema, No bradycardia, No tachycardia , No point of maximal impulse, No cardiac thrills are palpable; S1 and S2; No gallop/S3, No gallop/S4, No diastolic murmur, No systolic murmur, No friction rub, No click, No other Gastrointestinal: No tender, No soft, No round, No distended, No pulsatile mass , No organomegaly, No guarding, No rebound, No tenderness, No hernia, No mass, No audible bowel sounds, No abnormal bowel sounds, No abdominal bruits, No spleenomegaly, No other Rectal: deferred Extremities: No normal range of motion, No non-tender, No normal inspection, No pedal edema, No calf tenderness, No normal capillary refill, No pelvis stable , No calf tenderness, No inflammation, No pedal edema, No slow capillary refill , No swelling, No other, No abrasion, No clubbing, No cyanosis, No ecchymosis, No laceration, No no lower extremity edema bilateral, No significant edema, No tenderness, No wound Neurologic/Psychiatric: no motor/sensory deficits, alert, normal mood/affect, oriented x 3, power is 5/5 both on sides Skin: No normal color, No warm/dry, No cyanosis, No cool, No diaphoresis, No damp, No ecchymosis, No jaundice, No mottled, No pallor, No rash, No tattoos/ piercings, No ulcerations, No rash on exposed areas, No ulcerations on exposed areas, No other Data Review Labs Laboratory Tests 05/30/18 13:18: White Blood Count 5.9, Red Blood Count 5.17, Hemoglobin 16.3, Hematocrit 47, Mean Corpuscular Volume 91, Mean Corpuscular Hemoglobin 32, Mean Corpuscular Hemoglobin Concent 35, Red Cell Distribution Width 12.8, Platelet Count 299, Mean Platelet Volume 8.9, Neutrophils (%) (Auto) 62, Lymphocytes (%) (Auto) 27, Monocytes (%) (Auto) 9, Eosinophils (%) (Auto) 2, Basophils (%) (Auto) 1, Neutrophils # (Auto) 3.6, Lymphocytes # (Auto) 1.6, Monocytes # (Auto) 0.6, Eosinophils # (Auto) 0.1, Basophils # (Auto) 0.1, Prothrombin Time 13.6, INR Comment 1.0, Activated Partial Thromboplast Time 31, Sodium Level 141, Potassium Level 3.8, Chloride Level 108H, Carbon Dioxide Level 24, Anion Gap 9, Blood Urea Nitrogen 9, Creatinine 1.19, Estimat Glomerular Filtration Rate > 60 , BUN/Creatinine Ratio 8, Glucose Level 97, Calcium Level 9.4, Corrected Calcium , Magnesium Level 2.5H, Total Bilirubin 0.5, Aspartate Amino Transf (AST /SGOT) 25, Alanine Aminotransferase (ALT/SGPT) 48, Alkaline Phosphatase 62, Myoglobin 25.0, Troponin I < 0.30, Total Protein 7.1, Albumin 4.6H 05/30/18 15:30: Troponin I < 0.30 A/P-Cardiology Assessment/Admission Diagnosis Recurrent chest pain, Shortness of breath, Hyperlipidemia Plan - ACS ruled out with negative serial troponin. Nuclear stress test and Echocardiogram in am. Shortness of breath - Echocardiogram. no CHF. Euvolemic. lipids - continue statin. Lipid profile in am. Thank you for your consultation. Please call me if you have any questions. Vijay Castellanos MD, FACP, FACC, FSCAI, FHRS, CCDS Interventional Cardiology Cardiac Electrophysiology Vascular Medicine and Endovascular Interventions Clinical Quality Measures AMI/AHF: ASA po Prior to arrival: Stewart Ochoa MD May 30, 2018 4:10 pm
[2018-05-30] MEDS ORDERED: ACETAMINOPHEN 325 MG TABLET PO PRN (21:00)
[2018-05-31 03:42] VITALS: BP 118/73
[2018-05-31 06:37] LABS: CHOLESTEROL 203 MG/DL (< 200); HDL CHOLESTEROL 34 MG/DL (40-60); TRIGLYCERIDES 212 MG/DL (<150); VLDL CHOLESTEROL 42 MG/DL (5-40)
[2018-05-31 08:00] VITALS: BP 105/69
[2018-05-31] MEDS ORDERED: CATHETER FLUSH 10 ML SYR IV PRN (08:00)
[2018-05-31] MEDS ORDERED: REGADENOSON 0.4 MG/5 ML SYR (LEXISCAN) IV ONE ×2 (08:46→09:15)
--- NOTE | 2018-05-31 09:59 | Cardiology Progress Note ---
Cardiology SOAP Progress Note Subjective: No further chest pain. Objective: I&O/Vital Signs 05/31/18 05/31/18 05/31/18 05/31/18 01:00 03:42 07:00 08:00 Temp 97.9 98.2 Pulse 60 56 63 61 Resp 16 16 B/P (MAP) 118/73 (88) 105/69 (81) Pulse Ox 98 96 O2 Delivery Room Air Room Air 05/31/18 05/31/18 08:00 12:00 Temp 98.2 98.1 Pulse 61 70 Resp 16 16 B/P (MAP) 105/69 (81) 116/76 (89) Pulse Ox 96 95 O2 Delivery Room Air Room Air 05/31/18 00:00 Intake Total 1540 ml Balance 1540 ml Weight (Pounds): 215 Weight (Ounces): 0.0 Weight (Calculated Kilograms): 97.741504 Constitutional: appears stated age, AAO x 3; No apparent distress; well- developed, well-nourished Respiratory: No accessory muscle use, No respiratory distress, No chest tender , No chest expansion is symmetric; chest is bilaterally symmetric; No lungs clear to percussion; lungs clear to auscultation; No crackles, No rhonchi, No rales, No stridor, No wheezing, No pleural rub, No other Cardiovascular: regular rate-rhythm; No irregularly irregular, No extra beats, No parasternal heave is noted, No JVD, No edema, No bradycardia, No tachycardia , No point of maximal impulse, No cardiac thrills are palpable; S1 and S2; No gallop/S3, No gallop/S4, No diastolic murmur, No systolic murmur, No friction rub, No click, No other Gastrointestional: No tender, No soft, No round, No distended, No pulsatile mass, No organomegaly, No guarding, No rebound, No tenderness, No hernia, No mass, No audible bowel sounds, No abnormal bowel sounds, No abdominal bruits, No spleenomegaly, No other Extremities: No normal range of motion, No non-tender, No normal inspection, No pedal edema, No calf tenderness, No normal capillary refill, No pelvis stable , No calf tenderness, No inflammation, No pedal edema, No slow capillary refill , No swelling, No other, No abrasion, No clubbing, No cyanosis, No ecchymosis, No laceration, No no lower extremity edema bilateral, No significant edema, No tenderness, No wound Neurologic/Psychiatric: no motor/sensory deficits, alert, normal mood/affect, oriented x 3, power is 5/5 both on sides Skin: No normal color, No warm/dry, No cyanosis, No cool, No diaphoresis, No damp, No ecchymosis, No jaundice, No mottled, No pallor, No rash, No tattoos/ piercings, No ulcerations, No rash on exposed areas, No ulcerations on exposed areas, No other Results/Procedures: Labs Laboratory Tests 05/30/18 13:18: White Blood Count 5.9, Red Blood Count 5.17, Hemoglobin 16.3, Hematocrit 47, Mean Corpuscular Volume 91, Mean Corpuscular Hemoglobin 32, Mean Corpuscular Hemoglobin Concent 35, Red Cell Distribution Width 12.8, Platelet Count 299, Mean Platelet Volume 8.9, Neutrophils (%) (Auto) 62, Lymphocytes (%) (Auto) 27, Monocytes (%) (Auto) 9, Eosinophils (%) (Auto) 2, Basophils (%) (Auto) 1, Neutrophils # (Auto) 3.6, Lymphocytes # (Auto) 1.6, Monocytes # (Auto) 0.6, Eosinophils # (Auto) 0.1, Basophils # (Auto) 0.1, Prothrombin Time 13.6, INR Comment 1.0, Activated Partial Thromboplast Time 31, Sodium Level 141, Potassium Level 3.8, Chloride Level 108H, Carbon Dioxide Level 24, Anion Gap 9, Blood Urea Nitrogen 9, Creatinine 1.19, Estimat Glomerular Filtration Rate > 60 , BUN/Creatinine Ratio 8, Glucose Level 97, Calcium Level 9.4, Corrected Calcium , Magnesium Level 2.5H, Total Bilirubin 0.5, Aspartate Amino Transf (AST /SGOT) 25, Alanine Aminotransferase (ALT/SGPT) 48, Alkaline Phosphatase 62, Myoglobin 25.0, Troponin I < 0.30, Total Protein 7.1, Albumin 4.6H 05/30/18 15:30: Troponin I < 0.30 05/30/18 21:05: Troponin I < 0.30 05/31/18 06:01: Triglycerides Level 212H, Cholesterol Level 203H, LDL Cholesterol Direct 141H, VLDL Cholesterol 42H, HDL Cholesterol 34L A/P: Assessment/Dx: Recurrent chest pain, Shortness of breath, Hyperlipidemia Plan: - ACS ruled out with negative serial troponin. Nuclear stress test was negative for inducible ischemia. Shortness of breath - Echocardiogram. no CHF. Euvolemic. lipids - increase statin. Significantly elevated lipid profile. Thank you for your consultation. Please call me if you have any questions. Vijay Castellanos MD, FACP, FACC, FSCAI, FHRS, CCDS Interventional Cardiology Cardiac Electrophysiology Vascular Medicine and Endovascular Interventions Clinical Quality Measures AMI/AHF: ASA po Prior to arrival: Stewart Ochoa MD May 31, 2018 09:59
[2018-05-31 12:00] VITALS: BP 116/76
--- NOTE | 2018-05-31 12:51 | Cardiology Stress Test Report ---
Stress Test Report Type of NM Stress Test: Test Type: LEXISCAN 0.4MG/5ML Date of Procedure/Referring: Date of Procedure: May 31, 2018 PCP Jo-Ann Rodriguez MD Admitting Physician No,Local Physician Indications: Chest pain Baseline Heart Rate: 56 Baseline Blood Pressure: Blood Pressure Systolic: 116 Blood Pressure Diastolic: 76 Baseline EKG: Baseline EKG: Sinus rhythm Summary & Conclusion: Summary: The patient was brought to the stress lab after informed consent was taken. Stress test was performed according to the Lexiscan protocol. 0.4 mg of IV Lexiscan was given. Low-grade exercise was performed. Baseline EKG showed sinus rhythm at 56 BPM. Initial blood pressure was 120/82 mmHg. Maximum heart rate was 98 bpm and blood pressure 130/73 mmHg. Patient did not have any chest pain, arrhythmias or ST segment changes during the stress test. 10.89 mCi of Myoview were given for rest imaging and 32.3 mCi of Myoview given for stress imaging. Transient ischemic dilatation score 1.02, EF 64 percent. Normal wall motion. Normal myocardial perfusion imaging during rest and stress. Conclusion: Pharmacological stress test was negative for ischemia. Normal LV function with no wall motion abnormalities. Normal myocardial perfusion imaging during rest and stress. Copy Copies To 1: JO-ANN RODRIGUEZ MD, M RIZWAN MD May 31, 2018 12:51
[2018-05-31] MEDS ORDERED: ATOR40TA PO (13:04)
--- NOTE | 2018-05-31 13:09 | Discharge Inst-Simple/Standard ---
Discharge Inst-Standard Discharge Medications New, Converted or Re-Newed RX: Transmitted to Pharmacy Patient Instructions/Follow Up Plan of Care/Instructions/FU: Please continue to take your medications as written. Your cholesterol medication was increased this admission so please pick that up from the pharmacy. Please follow up with a PCP and with Dr Castellanos. Activity as Tolerated: Yes Discharge Diet: Low Fat/Low Cholesterol Return to The Hospital For: Chest pain, shortness of breath, if you feel you are getting worse. Planned Outpatient Orders/Ref. Pneu Vac Indicated: Yes JO-ANN CARTER MD May 31, 2018 1:09 pm
--- NOTE | 2018-05-31 13:15 | Short Stay Summary-Hospitalist ---
History of Present Illness HPI/Chief Complaint Pt is a 53yoCM with a PMH of HLD who presented to the ER due to chest pain. He states his symptoms have been going on for about a week. He gets central chest pain that radiates to his left arm and he gets nauseated with it. He previously thought it was related to reflux because it will wake him up at night and feels similar to heartburn. This has happened intermittently for around 15 minutes without any known precipitating factors. He had a previous episode a few years ago and it resolved on its own. He was given nitro at that time and so he tried to take it for this and it seemed to help his pain. Source: patient Exam Limitations: no limitations Date Seen 05/31/18 Time Seen by a Provider: 09:00 Attending Physician Jo-Ann Rodriguez MD PCP No,Local Physician Referring Physician Date of Admission May 30, 2018 at 2:41 pm Home Medications & Allergies Home Medications Reviewed patient Home Medication Reconciliation performed by pharmacy medication reconciliations conservation technician and/or nursing. Patients Allergies have been reviewed. Allergies Allergies Coded Allergies No Known Drug Allergies (Zqrwmeupqs06/19/18) Past Hritaoq-Ucpvem-Vrrsqo Hx Past Med/Social Hx: Reviewed Nursing Past Med/Soc Hx, Reviewed and Corrections made Patient Social History Marrital Status: Employed/Student: employed Alcohol Use: Occasionally Uses Recreational Drug Use: No Smoking Status: Never a Smoker Physical Abuse Screen: No Sexual Abuse: No Recent Foreign Travel: No Contact w/other who traveled: No Recent Hopitalizations: No Recent Infectious Disease Expo: No Immunizations Up To Date Date of Influenza Vaccine: May 30, 2018 Seasonal Allergies Seasonal Allergies: No Past Medical History Surgeries: Abdominal (hernia repair), Orthopedic (knee) Cardiac: High Cholesterol Reproductive: No Gastrointestinal: Gastroesophageal Reflux Cancer: Skin Did You Recieve Any Treatments: Yes What Type of Treatment Did You: Surgical Intervention History of Blood Disorders: No Family History Reviewed and Corrections made Cardiovascular disease 19 FATHER, , Age:50's - 60 19 MOTHER (Skin Cancer; CHF; Type 2 Diabetes; Sleep Apnea), , Age:60 years and older G8 BROTHER Congenital heart disease Diabetes mellitus 19 MOTHER (Skin Cancer; CHF; Type 2 Diabetes; Sleep Apnea), , Age:60 years and older Myocardial infarction G8 BROTHER CAD Under 55 Years Old Review of Systems Constitutional: No chills, No fever EENTM: No blurred vision, No double vision, No nose congestion, No throat pain Respiratory: see HPI; No dyspnea on exertion Cardiovascular: see HPI Gastrointestinal: No abdominal pain, No constipation, No diarrhea; heartburn, nausea; No vomiting Genitourinary: No dysuria, No frequency Musculoskeletal: No joint pain, No muscle pain Skin: No lesions, No rash Psychiatric/Neurological: Denies Headache, Denies Numbness, Denies Tingling Physical Exam Physical Exam Vital Signs Vital Signs - First Documented 05/30/18 13:09 Temp 98.2 Pulse 83 Resp 20 B/P (MAP) 129/90 (103) Pulse Ox 96 O2 Delivery Room Air Capillary Refill : Less Than 3 Seconds Height, Weight, BMI Height: 5'7.00" Weight: 215lbs. 0.0oz. 97.630682qg; 33.7 BMI Method:Stated General Appearance: No Apparent Distress, WD/WN HEENT: PERRL/EOMI, Moist Mucous Membranes Neck: Non Tender, Supple Respiratory: Lungs Clear, No Respiratory Distress Cardiovascular: Regular Rate, Rhythm, No Murmur Gastrointestinal: Normal Bowel Sounds, Non Tender, Soft Extremity: Normal Capillary Refill, No Calf Tenderness Neurologic/Psychiatric: Alert, Oriented x3, Normal Mood/Affect Skin: Normal Color, Warm/Dry Results Results/Procedures Labs Laboratory Tests 05/30/18 13:18 Patient resulted labs reviewed. Short Stay Diagnosis Discharge Diagnosis-Short Stay Admission Diagnosis Chest pain Final Discharge Diagnosis Atypical Chest Pain Conclusion Plan Atypical chest pain Underwent stress which was normal Serial Troponins negative Dr Castellanos consulted, appreciate recs Follow up with PCP HLD Cholesterol elevated despite simvastatin treatment Intensify treatment with Lipitor GERD Continue PPI Clinical Quality Measures AMI/AHF: ASA po Prior to arrival: No DVT/VTE Risk/Contraindication: Risk Factor Score Per Nursin RFS Level Per Nursing on Admit: 1=Low/No VTE PPX JO-ANN RODRIGUEZ MD May 31, 2018 13:15
[2018-05-31 13:25] VITALS: BP 116/76
[2018-05-31] MEDS ORDERED: ATORVASTATIN 80 MG (LIPITOR) TABLET PO SCH (21:00)
[2018-05-31] MEDS ORDERED: ATORVASTATIN 40 MG (LIPITOR) TABLET PO SCH (21:00)
== END 2018-05-31 13:15 | disposition home or self-care (01) ==
LOC: ER 13:10 → 4TH 14:41 → UNDOADMOB 14:41 → 4TH 14:54 → UNDODISOB 05-31 13:40
PROVIDERS: ADMIT Family Medicine; ATTEND Family Medicine
DX: R07.89 Other chest pain (principal); E78.5 Hyperlipidemia, unspecified; K21.9 Gastro-esophageal reflux disease without esophagitis; Z85.828 Personal history of other malignant neoplasm of skin; Z79.899 Other long term (current) drug therapy; Z82.49 Family history of ischemic heart disease and other diseases of the circulatory system
CPT/HCPCS: 36415; 71045; 78452; 80053; 80061; 83735; 83874; 84484; 85025; 85610; 85730; 90471; 90686; 93005; 93017; 93041; 93306; G0378

== ENCOUNTER 2018-06-16 06:58 | Day surgery (SDC) | payer BC ==
[~2018-06-16] VITALS: Ht 170.2 cm; Wt 97.5 kg
[~2018-06-16 06:58] MED LIST: ATOR40TA PO; PANT40TA3 PO; SIMV20TA3 PO; SIMV5TAB6 PO; ZOLP10TA5 PO
[2018-06-16] MEDS ORDERED: HEParin (CATH LAB) 2,000 ML IV ONE (07:03)
[2018-06-16] MEDS ORDERED: LIDOCAINE 1% INJ 20 ML 20 ML VIAL ONE (07:03)
[2018-06-16 07:13] VITALS: BP 125/80
[2018-06-16] MEDS ORDERED: NS IV 1000 ML 1,000 ML IV SCH ×2 (07:15→08:54)
[2018-06-16] MEDS ORDERED: ATOR40TA70 PO (07:19)
[2018-06-16] MEDS ORDERED: MIDAZOLAM 5 MG/5 ML (VERSED) VIAL ONE (07:28)
[2018-06-16] MEDS ORDERED: VERAPAMIL 5 MG/2 ML (CALAN) VIAL IV ONE (07:28)
[2018-06-16] MEDS ORDERED: fentaNYL INJECTION 100 MCG/2 ML AMP ONE (07:28)
[2018-06-16] MEDS ORDERED: NITRO DRIP 25000 MCG/D5W 250 ML IV ONE (07:28)
[2018-06-16] MEDS ORDERED: HEParin 1000 UNIT/ML (10ML VIAL) FOR BOLUS ONE (07:28)
[2018-06-16 07:32] LABS: HEMOGLOBIN 15.8 G/DL (13.3-17.7); MEAN PLATELET VOLUME 8.8 FL (7.4-10.4); RED BLOOD COUNT 4.96 10^6/uL (4.35-5.85); RED CELL DISTRIBUTION WIDTH 13.1 % (10.0-14.5); WHITE BLOOD COUNT 5.8 10^3/uL (4.3-11.0)
[2018-06-16 07:43] LABS: INR 1.1 (0.8-1.4); PROTHROMBIN TIME PATIENT 13.8 SEC (12.2-14.7)
[2018-06-16 07:48] LABS: ALANINE AMINOTRANSFERASE 41 U/L (0-55); ALBUMIN 4.5 GM/DL (3.2-4.5); ALKALINE PHOSPHATASE 56 U/L (40-136); BILIRUBIN,TOTAL 0.6 MG/DL (0.1-1.0); BUN/CREATININE RATIO 13; CALCIUM 9.2 MG/DL (8.5-10.1); CARBON DIOXIDE 23 MMOL/L (21-32); CHLORIDE 107 MMOL/L (98-107); CREATININE SERUM 1.09 MG/DL (0.60-1.30); GFR ESTIMATED > 60; GLUCOSE 111 MG/DL (70-105); POTASSIUM 3.9 MMOL/L (3.6-5.0); SODIUM 140 MMOL/L (135-145); TOTAL PROTEIN 6.9 GM/DL (6.4-8.2)
--- NOTE | 2018-06-16 08:50 | Cardiac Procedure Note-CS/ASA ---
Pre-Procedure Note Pre-Op Procedure Note H&P Reviewed The H&P was reviewed, patient examined and no changes noted. Date H&P Reviewed: Jun 16, 2018 Time H&P Reviewed: 08:15 Conscious Sedation Pre-Proced Time 08:15 ASA Score 3 For ASA 3 and 4: Consider anesthesia and medical clearance. Also, for patients with a history of failed moderate sedation consider anesthesia. Airway Lungs Heart ASA score ASA 1: a normal healthy patient ASA 2: a patient with a mild systemic disease (mid diabetes, controlled hypertension, obesity ASA 3: a patient with a severe systemic disease that limits activity (angina , COPD, prior Myocardial infarction) ASA 4: a patient with an incapacitating disease that is a constant threat to life (CHF, renal failure) ASA 5: a moribund patient not expected to survive 24 hrs. (ruptured aneurysm) ASA 6: a declared brain patient whose organs are being harvested. For emergent operations, add the letter E after the classification Mallampati Classification Grade 1 Sedation Plan Analgesia, Amnesia, Plan communicated to team members, Discussed options with patient/fam, Discussed risks with patient/fam The patient is an appropriate candidate to undergo the planned procedure, sedation, and anesthesia. The patient immediately re-assessed prior to indication. Stewart CHENEY MD Jun 16, 2018 08:50
--- NOTE | 2018-06-16 08:54 | Coronary Angiography Report ---
Coronary Angiography Report DATE OF PROCEDURE: 06/16/18 INDICATION: Recurrent chest pain. PREOPERATIVE DIAGNOSIS: Recurrent chest pain. POSTOPERATIVE DIAGNOSIS: Mild CAD with likely endothelial dysfunction. HISTORY: This is a 53-year-old gentleman with history of untreated hyperlipidemia and significant premature family history of [place]. He presented with recurrent episodes of chest pain. Nuclear stress test was done which did not show any significant perfusion defect. However the patient continued to have recurrent prolonged episodes of chest discomfort. Considering significant CAD risk factors, the patient was scheduled for coronary angiography. PROCEDURES PERFORMED: 1.Coronary angiography. 2.Left heart catheterization. COMPLICATIONS: None. SPECIMENS: None. ESTIMATED BLOOD LOSS: 10 mL ANESTHESIA: Conscious sedation ANTICOAGULATION: IV heparin CONTRAST: 60 mL. FLUOROSCOPY: 4.41 minutes. FLOUROSCOPY DOSE: 414 mgy. PROCEDURE DETAILS: The patient is a 53 male and was brought to the lab analyst after informed consent was taken. All the risks and complications were explained in detail; this included the risk of bleeding, vascular damage, stroke , [place] and even . The patient was draped and prepped in the usual sterile fashion. Access was gained in the right radial artery with a 6 [place] sheath. Coronary angiography and left heart catheterization was performed with the [facility] catheter. FINDINGS: 1.Left main: Patent. 2.LAD: Mild disease in the mid LAD. Stenosis severity 20 percent. Mild disease in first diagonal artery. Stenosis severity 20-30 percent. Global slow flow is noted in all arteries. 3.Left circumflex artery: Mild disease. 4.RCA: Mild disease. 5.Left heart catheterization: Aortic pressure 95/65 mmHg. LV pressure 90/4 mmHg. LVEDP 10 mmHg. Normal LV function with no wall motion abnormalities. No gradient across the aortic valve. CONCLUSIONS: Mild CAD with global slow flow likely due to endothelial dysfunction. Aggressive secondary prevention measures. Vijay Castellanos MD, FACP, FACC, [facility] Interventional Cardiology Stewart CASTELLANOS MD Jun 16, 2018 08:54
[2018-06-16] MEDS ORDERED: ASPI-999 PO (08:57)
--- NOTE | 2018-06-16 08:58 | Discharge Inst-Post CATH ---
Discharge Inst-CATH Post Cardiac Cath D/C Inst Follow Up/Plan Dr Castellanos in 4 weeks. CARDIAC CATH DISCHARGE INSTRUCTIONS *Hold Metformin for 48 hours post heart cath. ACTIVITY * Go Home directly and rest. * Limit activity of the leg (or wrist if it was used) for 7 days including aerobics, swimming, jogging, bicycling, etc. * Restrict stair-climbing for 7 days if possible, if not, climb up with your non -cath leg, then bring together on the same step. * Avoid lifting, pushing, pulling or excessive movement of the affected extremity for 7 days. * Customary sexual activity may be resumed after 2 days-use caution not to use a position that strains or causes pain to the affected extremity. * No driving for 24 hours. * NO SMOKING. * Avoid straining for bowel movements for 7 days. * Gentle walking on level ground is allowed. * Returning to work will depend on the type of procedure and the results. Your doctor will discuss this with you. CALL YOUR DOCTOR FOR ANY OF THE FOLLOWING: *If bleeding from the puncture site occurs- Apply gentle pressure to site with clean cloth and call your doctor or EMS. * If a knot or lump forms under the skin, increases in size, or causes pain. * If bruising appears to be worsening or moving further down your leg instead of disappearing. * Temperature above 101 F. CARE OF YOUR GROIN INCISION; * Bruising or purple discoloration of the skin near the puncture site is common. * You may shower only, no bathtub bathing for 5 days. Be careful to avoid slipping as your leg may feel stiff. * If a closure device was used on your femoral artery, please see the attached guide regarding care of the device and your leg. * Leave the dressing on, until removed by office staff. CARE OF YOUR WRIST INCISION; * Bruising or purple discoloration of the skin near the puncture site is common. * You may shower. * DO NOT submerge wrist. * Leave dressing on, until removed by office staff.. Stewart CASTELLANOS MD Jun 16, 2018 08:58
[2018-06-16] MEDS ORDERED: PATIENT MAY USE OWN MEDS, ALL PO SCH (09:00)
[2018-06-16] MEDS ORDERED: ASPIRIN E.C. 81 MG (ECOTRIN) TAB PO SCH (09:00)
--- NOTE | 2018-06-16 09:00 | Cardiology Discharge Summary ---
Diagnosis/Chief Complaint Date of Admission 06/16/2018 Date of Discharge 06/16/2018 Admission Diagnosis Recurrent chest pain Final/Discharge Diagnosis Mild CAD with likely endothelial dysfunction. Chief Complaint/HPI Chief Complaint/HPI This is a 53-year-old gentleman with history of untreated hyperlipidemia and significant premature family history of [place]. He presented with recurrent episodes of chest pain. Nuclear stress test was done which did not show any significant perfusion defect. However the patient continued to have recurrent prolonged episodes of chest discomfort. Considering significant CAD risk factors, the patient was scheduled for coronary angiography. Discharge Summary Procedures Coronary angiography shows mild CAD with globally slow flow likely due to endothelial dysfunction. Normal LV function with normal LVEDP. Discharge Physical Examination Normal cardiac vascular examination Hospital Course Unremarkable. Pending Labs Laboratory Tests 06/16/18 07:20: White Blood Count 5.8, Red Blood Count 4.96, Hemoglobin 15.8, Hematocrit 46, Mean Corpuscular Volume 92, Mean Corpuscular Hemoglobin 32, Mean Corpuscular Hemoglobin Concent 35, Red Cell Distribution Width 13.1, Platelet Count 296, Mean Platelet Volume 8.8, Prothrombin Time 13.8, INR Comment 1.1, Activated Partial Thromboplast Time 33, Sodium Level 140, Potassium Level 3.9, Chloride Level 107, Carbon Dioxide Level 23, Anion Gap 10, Blood Urea Nitrogen 14, Creatinine 1.09, Estimat Glomerular Filtration Rate > 60, BUN/Creatinine Ratio 13, Glucose Level 111, Calcium Level 9.2, Corrected Calcium 8.8, Total Bilirubin 0.6, Aspartate Amino Transf (AST/SGOT) 23, Alanine Aminotransferase ( ALT/SGPT) 41, Alkaline Phosphatase 56, Total Protein 6.9, Albumin 4.5 Discussion & Recommendations Discussion Discharge instructions discussed with the patient. Follow up appt.: Dr. Castellanos in a month Dicharge Diet: Cardiac Diet Activity as Tolerated: Yes Home Medications Reviewed patient Home Medication Reconciliation performed by pharmacy medication reconciliations on call pharmacy technician and/or nursing. Patients Allergies have been reviewed. Discharge Home Medications: Reviewed and agree with Discharge Medication list on patient's Discharge Instruction sheet Condition at discharge Stable. Instructions to patient/family Dr Castellanos in 4 weeks. Stewart CASTELLANOS MD Jun 16, 2018 09:00
[2018-06-16 12:15] VITALS: BP 125/80
--- OUTSIDE RECORDS SUMMARY | 2018-06-16 12:42 | XMS REPORT | Continuity of Care Document ---
Author Author [facility] Address Unknown Phone Unavailable Allergies Active Description Code Type Severity Reaction Onset Reported/Identified Relationship to Patient Clinical Status Yes No Known Medication Allergies Drug N/A N/A Yes No Known Drug Allergies [id number] Drug Allergy Unknown N/A 05/30/2018 Medications There is no data. Problems Date Dx Coded Attending Type Code Diagnosis Diagnosed By 07/14/2017 R05 Cough 05/31/2018 JO-ANN CARTER MD, Ot E78.5 HYPERLIPIDEMIA, UNSPECIFIED 05/31/2018 JO-ANN CARTER MD, Ot K21.9 GASTRO-ESOPHAGEAL REFLUX DISEASE WITHOUT 05/31/2018 JO-ANN CARTER MD, Ot R07.89 OTHER CHEST PAIN 05/31/2018 JO-ANN CARTER MD, Ot Z79.899 OTHER COMPONENT INSPECTOR (CURRENT) DRUG THERAPY 05/31/2018 JO-ANN CARTER MD, Ot Z82.49 FAMILY HX OF ISCHEM HEART DIS AND OTH DI 05/31/2018 JO-ANN CARTER MD, Ot Z85.828 PERSONAL HISTORY OF OTHER MALIGNANT NEOP Procedures There is no data. Results Test Result Range Complete blood count (CBC) with automated white blood cell (WBC) differential - 05/30/18 13:18 Blood leukocytes automated count (number/volume) 5.9 10*3/uL 4.3-11.0 Blood erythrocytes automated count (number/volume) 5.17 10*6/uL 4.35-5.85 Venous blood hemoglobin measurement (mass/volume) 16.3 g/dL 13.3-17.7 Blood hematocrit (volume fraction) 47 % 40-54 Automated erythrocyte mean corpuscular volume 91 [foz_us] 80-99 Automated erythrocyte mean corpuscular hemoglobin (mass per erythrocyte) 32 pg 25-34 Automated erythrocyte mean corpuscular hemoglobin concentration measurement ( mass/volume) 35 g/dL 32-36 Automated erythrocyte distribution width ratio 12.8 % 10.0-14.5 Automated blood platelet count (count/volume) 299 10*3/uL 130-400 Automated blood platelet mean volume measurement 8.9 [foz_us] 7.4-10.4 Automated blood neutrophils/100 leukocytes 62 % 42-75 Automated blood lymphocytes/100 leukocytes 27 % 12-44 Blood monocytes/100 leukocytes 9 % 0-12 Automated blood eosinophils/100 leukocytes 2 % 0-10 Automated blood basophils/100 leukocytes 1 % 0-10 Blood neutrophils automated count (number/volume) 3.6 10*3 1.8-7.8 Blood lymphocytes automated count (number/volume) 1.6 10*3 1.0-4.0 Blood monocytes automated count (number/volume) 0.6 10*3 0.0-1.0 Automated eosinophil count 0.1 10*3/uL 0.0-0.3 Automated blood basophil count (count/volume) 0.1 10*3/uL 0.0-0.1 PT panel in platelet poor plasma by coagulation assay - 05/30/18 13:18 Prothrombin time (PT) in platelet poor plasma by coagulation assay 13.6 s 12.2-14.7 INR in platelet poor plasma or blood by coagulation assay 1.0 0.8-1.4 Activated partial thromboplastin time (aPTT) in platelet poor plasma bycoagulation assay - 05/30/18 13:18 Activated partial thromboplastin time (aPTT) in platelet poor plasma bycoagulation assay 31 s 24-35 Comprehensive metabolic panel - 05/30/18 13:18 Serum or plasma sodium measurement (moles/volume) 141 mmol/L 135-145 Serum or plasma potassium measurement (moles/volume) 3.8 mmol/L 3.6-5.0 Serum or plasma chloride measurement (moles/volume) 108 mmol/L 98-107 Carbon dioxide 24 mmol/L 21-32 Serum or plasma anion gap determination (moles/volume) 9 mmol/L 5-14 Serum or plasma urea nitrogen measurement (mass/volume) 9 mg/dL 7-18 Serum or plasma creatinine measurement (mass/volume) 1.19 mg/dL 0.60-1.30 Serum or plasma urea nitrogen/creatinine mass ratio 8 NRG Serum or plasma creatinine measurement with calculation of estimated glomerular filtration rate > NRG Serum or plasma glucose measurement (mass/volume) 97 mg/dL 70-105 Serum or plasma calcium measurement (mass/volume) 9.4 mg/dL 8.5-10.1 Serum or plasma total bilirubin measurement (mass/volume) 0.5 mg/dL 0.1-1.0 Serum or plasma alkaline phosphatase measurement (enzymatic activity/volume) 62 U/L 40-136 Serum or plasma aspartate aminotransferase measurement (enzymatic activity/ volume) 25 U/L 5-34 Serum or plasma alanine aminotransferase measurement (enzymatic activity/volume ) 48 U/L 0-55 Serum or plasma protein measurement (mass/volume) 7.1 g/dL 6.4-8.2 Serum or plasma albumin measurement (mass/volume) 4.6 g/dL 3.2-4.5 Magnesium - 05/30/18 13:18 Magnesium 2.5 mg/dL 1.8-2.4 Serum or plasma troponin i.cardiac measurement (mass/volume) - 05/30/18 13:18 Serum or plasma troponin i.cardiac measurement (mass/volume) < ng/ mL <0.30 Myoglobin, serum - 05/30/18 13:18 Myoglobin, serum 25.0 ng/mL 10.0-92.0 Serum or plasma troponin i.cardiac measurement (mass/volume) - 05/30/18 15:30 Serum or plasma troponin i.cardiac measurement (mass/volume) < ng/ mL <0.30 Serum or plasma troponin i.cardiac measurement (mass/volume) - 05/30/18 21:05 Serum or plasma troponin i.cardiac measurement (mass/volume) < ng/ mL <0.30 Lipid 1996 panel - 05/31/18 06:01 Serum or plasma triglyceride measurement (mass/volume) 212 mg/dL <150 Serum or plasma cholesterol measurement (mass/volume) 203 mg/dL < 200 Serum or plasma cholesterol in HDL measurement (mass/volume) 34 mg/ dL 40-60 Cholesterol in LDL [mass/volume] in serum or plasma by direct assay 141 mg/dL 1-129 Serum or plasma cholesterol in VLDL measurement (mass/volume) 42 mg/ dL 5-40 Automated blood complete blood count (hemogram) panel - 06/16/18 07:20 Blood leukocytes automated count (number/volume) 5.8 10*3/uL 4.3-11.0 Blood erythrocytes automated count (number/volume) 4.96 10*6/uL 4.35-5.85 Venous blood hemoglobin measurement (mass/volume) 15.8 g/dL 13.3-17.7 Blood hematocrit (volume fraction) 46 % 40-54 Automated erythrocyte mean corpuscular volume 92 [foz_us] 80-99 Automated erythrocyte mean corpuscular hemoglobin (mass per erythrocyte) 32 pg 25-34 Automated erythrocyte mean corpuscular hemoglobin concentration measurement ( mass/volume) 35 g/dL 32-36 Automated erythrocyte distribution width ratio 13.1 % 10.0-14.5 Automated blood platelet count (count/volume) 296 10*3/uL 130-400 Automated blood platelet mean volume measurement 8.8 [foz_us] 7.4-10.4 PT panel in platelet poor plasma by coagulation assay - 06/16/18 07:20 Prothrombin time (PT) in platelet poor plasma by coagulation assay 13.8 s 12.2-14.7 INR in platelet poor plasma or blood by coagulation assay 1.1 0.8-1.4 Activated partial thromboplastin time (aPTT) in platelet poor plasma bycoagulation assay - 06/16/18 07:20 Activated partial thromboplastin time (aPTT) in platelet poor plasma bycoagulation assay 33 s 24-35 Comprehensive metabolic panel - 06/16/18 07:20 Serum or plasma sodium measurement (moles/volume) 140 mmol/L 135-145 Serum or plasma potassium measurement (moles/volume) 3.9 mmol/L 3.6-5.0 Serum or plasma chloride measurement (moles/volume) 107 mmol/L 98-107 Carbon dioxide 23 mmol/L 21-32 Serum or plasma anion gap determination (moles/volume) 10 mmol/L 5-14 Serum or plasma urea nitrogen measurement (mass/volume) 14 mg/dL 7-18 Serum or plasma creatinine measurement (mass/volume) 1.09 mg/dL 0.60-1.30 Serum or plasma urea nitrogen/creatinine mass ratio 13 NRG Serum or plasma creatinine measurement with calculation of estimated glomerular filtration rate > NRG Serum or plasma glucose measurement (mass/volume) 111 mg/dL 70-105 Serum or plasma calcium measurement (mass/volume) 9.2 mg/dL 8.5-10.1 Serum or plasma total bilirubin measurement (mass/volume) 0.6 mg/dL 0.1-1.0 Serum or plasma alkaline phosphatase measurement (enzymatic activity/volume) 56 U/L 40-136 Serum or plasma aspartate aminotransferase measurement (enzymatic activity/ volume) 23 U/L 5-34 Serum or plasma alanine aminotransferase measurement (enzymatic activity/volume ) 41 U/L 0-55 Serum or plasma protein measurement (mass/volume) 6.9 g/dL 6.4-8.2 Serum or plasma albumin measurement (mass/volume) 4.5 g/dL 3.2-4.5 CALCIUM CORRECTED 8.8 mg/dL 8.5-10.1 Encounters ACCT No. Visit Date/Time Discharge Status Pt. Type Provider Facility Loc./Unit Complaint [id number] 05/20/2018 14:47:00 ACT Unknown [id number] 05/30/2018 14:41:00 05/31/2018 13:40:00 DIS Outpatient JO-ANN CARTER MD [facility] 4TH CHEST PAIN [id number] 06/16/2018 06:58:00 ACT Outpatient Stewart CHENEY MD [facility] CATH RECURRENT CHEST PAIN [id number] 08/03/2016 01:51:59 ACT Document Registration [id number] 07/03/2017 10:33:00 07/03/2017 11:50:00 DIS Emergency KAY BAÑUELOS [facility] ED ed visit
== END 2018-06-16 12:15 | disposition home or self-care (01) ==
LOC: CATH 06:58
PROVIDERS: ATTEND Internal Medicine Interventional Cardiology
DX: I25.10 Atherosclerotic heart disease of native coronary artery without angina pectoris (principal); E78.5 Hyperlipidemia, unspecified; Z82.49 Family history of ischemic heart disease and other diseases of the circulatory system; I11.9 Hypertensive heart disease without heart failure
CPT/HCPCS: 36415; 80053; 85027; 85610; 85730; 87081; 93458

== ENCOUNTER 2018-09-20 08:39 | Outpatient (CLI) | payer BC ==
[~2018-09-20] VITALS: Ht 170.2 cm; Wt 97.5 kg
[~2018-09-20 08:39] MED LIST changes: +ASPI-999 PO; +ATOR40TA70 PO; +SIMV5TAB22 PO; -SIMV5TAB6 PO
[2018-09-20] MEDS ORDERED: SERT50TA9 PO (11:21)
== END 2018-09-20 11:39 | disposition home or self-care (01) ==
LOC: PREOP 08:39
PROVIDERS: ATTEND Internal Medicine
DX: Z01.818 Encounter for other preprocedural examination (principal)

== ENCOUNTER 2018-09-23 07:19 | Day surgery (SDC) | payer BC ==
--- NOTE | 2018-09-16 15:56 | HISTORY AND PHYSICAL ---
DATE OF SERVICE: EGD HISTORY AND PHYSICAL HISTORY OF PRESENT ILLNESS: The patient is a 53-year-old white male referred by Dr. Lo for surveillance EGD due to the past history of Rascon's esophagus. This was diagnosed a little over a year ago at a different facility. He does not recall whether or not dysplasia was noted or whether it was short or long segment Rascon's. He was having a significant reflux at that time without reported dysphagia. On pantoprazole, he has rare need for antacid usage and denies dysphagia. Weight has been stable and he has had no epigastric pain, melena or bright red blood per rectum. He had a colonoscopy at that time that was reportedly unremarkable. PAST MEDICAL HISTORY: Significant for mild coronary artery disease diagnosed in June of last year after admission for chest pain. It was 3-vessel in nature in the 20% to 30% range per Dr. Castellanos. He had history of hyperlipidemia and his atorvastatin was intensified at that time. He has no reported past history of hypertension. MEDICATIONS ON ADMISSION: Include sertraline 50 mg daily, atorvastatin 40 mg daily, pantoprazole 40 mg daily, baby aspirin daily and 10 mg Ambien at bedtime p.r.n. insomnia. FAMILY HISTORY: He is not aware of any family history for GI tract malignancy including esophageal cancer. He is not aware of anybody else in the family has been diagnosed with Rascon's esophagus. Mother of complications of congestive heart failure and had type 2 diabetes mellitus as well as sleep apnea in her 70s. Father in his 50s to 60s believed to be heart related. He had one brother diagnosed with coronary artery disease in his early 50s. SOCIAL HISTORY: The patient has no past smoking history with only occasional social alcohol intake. PAST SURGICAL HISTORY: He has history of removal of a skin cancer, not melanoma with no other reported surgeries. REVIEW OF SYSTEMS: CONSTITUTIONAL: He has had no change in weight, night sweats, chills or fever. RESPIRATORY: He denies dyspnea on exertion, cough or wheezing. HEENT: Denies sore throat, odynophagia or dysphagia. GASTROINTESTINAL: As noted in the HPI. CARDIOVASCULAR: He has had no subsequent chest pain since his admission in June, has had no palpitations, syncope or presyncope. PHYSICAL EXAMINATION: GENERAL: Reveals a pleasant, well appearing white male, appears to be in no acute distress. VITAL SIGNS: Weight 202 pounds, roughly 5 feet 6 inches tall, blood pressure 114/72 and heart rate 76 and regular. HEENT: Unremarkable. He has a Mallampati class 1 pharyngeal configuration. No erythema is noted. NECK: Revealed no JVD, adenopathy or bruits. CHEST: Clear to auscultation. CARDIOVASCULAR: Reveals regular rate and rhythm without murmur, S3 or S4. ABDOMEN: Soft, supple without mass, organomegaly or tenderness. EXTREMITIES: Reveal no cyanosis, clubbing or edema. ASSESSMENT AND PLAN: The patient is set up for surveillance EGD due to history of Rascon's esophagus on 09/23/2018. Prep instructions were given. He is to discontinue aspirin as of now and continue his other medications unchanged. Electronic medical record was reviewed. Forty minutes of personal care time spent with another 10 to 15 minutes of staff time setting of the procedure. I thank you for the referral of this pleasant gentleman. Job ID: [id number] DocumentID: [id number] Dictated Date: 09/16/2018 11:04:15 Medicinal Plant Picker Date: 09/16/2018 11:41:24 Dictated By: HCEIKH MEDINA MD
[~2018-09-23] VITALS: Ht 170.2 cm; Wt 97.5 kg
[~2018-09-23 07:19] MED LIST changes: +SERT50TA9 PO
--- OUTSIDE RECORDS SUMMARY | 2018-09-23 07:23 | XMS REPORT | Clinical Summary ---
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 Sara Prakash MA Mixed hyperlipidemia CAD 414.00 Active Sara Prakash MA Coronary atherosclerosis of unspecified type of vessel, [place] or graft Prostate cancer screening V76.44 Active Sara Prakash MA Screening for malignant neoplasms of prostate Medication List Medication Instructions Start Date Stop Date Generic Name [facility] Status Provider Patient Instruction HYDROCODONE-ACETAMINOPHEN 7.5-325 MG ORAL TABLET once daily as needed for pain HYDROCODONE-ACETAMINOPHEN 04129103976 Active Lety Flannery APRN Active AMBIEN 10 MG ORAL TABLET 1 tab by mouth at bedtime as needed for sleep 07/03 ZOLPIDEM TARTRATE 02859469441 Active Lety Flannery APRN Active RITALIN 10 MG ORAL TABLET 1 TAB PO BID METHYLPHENIDATE HCL 00319199365 No Longer Active Lety Flannery APRN Active ZITHROMAX Z-ABDOUL 250 MG ORAL TABLET 2 today, then 1 daily for 4 days AZITHROMYCIN 08059020094 No Longer Active Diane Raida Active SIMVASTATIN 20 MG ORAL TABLET 1 tab daily at bedtime SIMVASTATIN 66468693565 Active Darien Hernandez MD Active RITALIN 10 MG ORAL TABLET 1 TAB PO BID RITALIN 10 MG ORAL TABLET 4833810 METHYLPHENIDATE HCL Inactive ZITHROMAX Z-ABDOUL 250 MG ORAL TABLET 2 today, then 1 daily for 4 days ZITHROMAX Z-ABDOUL 250 MG ORAL TABLET 237706 AZITHROMYCIN Inactive Vital Signs Date Name Value Unit Range Description blood pressure, diastolic 82 mm[Hg] BP bro blood pressure, systolic 144 mm[Hg] BP sys height E&M 67 [in_us] Bdy height pulse rate E&M 81 /min Heart rate temperature E&M 98.7 [degF] Body temperature weight E&M 216.5 [lb_av] Weight Measured Diagnostic Results Date Name Value Unit Range Description Lab Report: Lipid Panel, Thyroid Stimulating Hormone (L), Prostatic Spec ... - Chemistry cholesterol, serum 113 mg/dL 314-499 4916/12/17 triglyceride, serum, fasting 53 mg/dL 30-200 HDL cholesterol, serum 45 mg/dL 32-60 LDL cholesterol, serum 57 mg/dL 0-130 TSH 0.80 m[iU]/mL 0.36-3.74 prostate specific antigen 1.16 ng/mL 0.00-4.00 Encounters Code Encounter Date Provider Facility CPT-51687 Level 3 Est. Patient 16:57:10 OIL LABORATORY ANALYST Lety Flannery APRN [facility] CPT-87137 Level 3 Est. Patient 09:28:01 OIL LABORATORY ANALYST Darien Hernandez MD [facility] Procedures Code Procedure Name Date Entry Date Standard Description CPT-89252 Breathing Treatment 16:57:10 OIL LABORATORY ANALYST CPT-26484 Lory Flu A/B - LAB USE ONLY 14:39:20 OIL LABORATORY ANALYST CPT-00017 Myco. Pneumo - LAB USE ONLY 14:39:20 OIL LABORATORY ANALYST CPT-13931 Venipuncture Draw Fee 14:39:19 OIL LABORATORY ANALYST
--- OUTSIDE RECORDS SUMMARY | 2018-09-23 07:23 | XMS REPORT | Clinical Summary ---
Author Author Admin, GEOVANNA Organization [facility] Address Unknown Phone Unavailable Allergies, Adverse [...] Coronary atherosclerosis of unspecified type of vessel, [place] or graft Prostate cancer screening V76.44 Active Sara Prakash MA Screening for malignant neoplasms of prostate Medication List Medication Instructions Start Date Stop Date Generic Name [facility] Status Provider Patient Instruction HYDROCODONE-ACETAMINOPHEN 7.5-325 MG ORAL TABLET once daily as needed for pain HYDROCODONE-ACETAMINOPHEN 69705368660 Active Lety Flannery APRN Active AMBIEN 10 MG ORAL TABLET 1 tab by mouth at bedtime as needed for sleep 07/03 ZOLPIDEM TARTRATE 35998451884 Active Lety Flannery APRN Active RITALIN 10 MG ORAL TABLET 1 TAB PO BID METHYLPHENIDATE HCL 31379281930 No Longer Active Lety Flannery APRN Active ZITHROMAX Z-ABDOUL 250 MG ORAL TABLET 2 today, then 1 daily for 4 days AZITHROMYCIN 50618265593 No Longer Active Diane Raida Active SIMVASTATIN 20 MG ORAL TABLET 1 tab daily at bedtime SIMVASTATIN 15731039919 Active Darien Hernandez MD Active RITALIN 10 MG ORAL TABLET 1 TAB PO BID RITALIN 10 MG ORAL TABLET 5626468 METHYLPHENIDATE HCL Inactive ZITHROMAX Z-ABDOUL 250 MG ORAL TABLET 2 today, then 1 daily for 4 days ZITHROMAX Z-ABDOUL 250 MG ORAL TABLET 974160 AZITHROMYCIN Inactive Vital Signs Date Name Value Unit Range Description blood pressure, diastolic 82 mm[Hg] BP bro blood pressure, systolic 144 mm[Hg] BP sys height E&M 67 [in_us] Bdy height pulse rate E&M 81 /min Heart rate temperature E&M 98.7 [degF] Body temperature weight E&M 216.5 [lb_av] Weight Measured Encounters Code Encounter Date Provider Facility CPT-72699 Level 3 Est. Patient 16:57:10 PRODUCT SUPPORT CONSULTANT Lety Flannery APRN [facility] CPT-90408 Level 3 Est. Patient 09:28:01 PRODUCT SUPPORT CONSULTANT Darien Hernandez MD [facility] Procedures Code Procedure Name Date Entry Date Standard Description CPT-97611 Breathing Treatment 16:57:10 PRODUCT SUPPORT CONSULTANT CPT-91559 Lory Flu A/B - LAB USE ONLY 14:39:20 PRODUCT SUPPORT CONSULTANT CPT-75171 Myco. Pneumo - LAB USE ONLY 14:39:20 PRODUCT SUPPORT CONSULTANT CPT-88749 Venipuncture Draw Fee 14:39:19 PRODUCT SUPPORT CONSULTANT
--- OUTSIDE RECORDS SUMMARY | 2018-09-23 07:23 | XMS REPORT | Clinical Summary ---
Author Author Admin, GEOVANNA Organization [facility] Address Unknown Phone Unavailable Allergies, Adverse Reactions, [...] Coronary atherosclerosis of unspecified type of vessel, [place] or graft Prostate cancer screening V76.44 Active Sara Prakash MA Screening for malignant neoplasms of prostate Medication List Medication Instructions Start Date Stop Date Generic Name [facility] Status Provider Patient Instruction HYDROCODONE-ACETAMINOPHEN 7.5-325 MG ORAL TABLET once daily as needed for pain HYDROCODONE-ACETAMINOPHEN 79063873778 Active Lety Flanneyr APRN Active AMBIEN 10 MG ORAL TABLET 1 tab by mouth at bedtime as needed for sleep 07/03 ZOLPIDEM TARTRATE 66819383865 Active Lety Flannery APRN Active RITALIN 10 MG ORAL TABLET 1 TAB PO BID METHYLPHENIDATE HCL 28911755155 No Longer Active Lety Flannery APRN Active ZITHROMAX Z-ABDOUL 250 MG ORAL TABLET 2 today, then 1 daily for 4 days AZITHROMYCIN 39979081636 No Longer Active Diane Raida Active SIMVASTATIN 20 MG ORAL TABLET 1 tab daily at bedtime SIMVASTATIN 52051534593 Active Darien Hernandez MD Active RITALIN 10 MG ORAL TABLET 1 TAB PO BID RITALIN 10 MG ORAL TABLET 2451466 METHYLPHENIDATE HCL Inactive ZITHROMAX Z-ABDOUL 250 MG ORAL TABLET 2 today, then 1 daily for 4 days ZITHROMAX Z-ABDOUL 250 MG ORAL TABLET 036722 AZITHROMYCIN Inactive Diagnostic Results Date Name Value Unit Range Description Lab Report: Lipid Panel, Thyroid Stimulating Hormone (L), Prostatic Spec ... - Chemistry cholesterol, serum 113 mg/dL 847-954 3173/12/17 triglyceride, serum, fasting 53 mg/dL 30-200 HDL cholesterol, serum 45 mg/dL 32-60 LDL cholesterol, serum 57 mg/dL 0-130 TSH 0.80 m[iU]/mL 0.36-3.74 prostate specific antigen 1.16 ng/mL 0.00-4.00 Encounters Code Encounter Date Provider Facility CPT-69096 Level 3 Est. Patient 16:57:10 [facility] Level 3 Est. Patient 09:28:01 CERTIFIED ORTHOPTIST Darien Hernandez MD [facility] Procedures Code Procedure Name Date Entry Date Standard Description CPT-91755 Breathing Treatment 16:57:10 CERTIFIED ORTHOPTIST CPT-20009 Lory Flu A/B - LAB USE ONLY 14:39:20 CERTIFIED ORTHOPTIST CPT-85372 Myco. Pneumo - LAB USE ONLY 14:39:20 CERTIFIED ORTHOPTIST CPT-38786 Venipuncture Draw Fee 14:39:19 CERTIFIED ORTHOPTIST
--- OUTSIDE RECORDS SUMMARY | 2018-09-23 07:24 | XMS REPORT | Continuity of Care Document ---
Author Author [facility] Address Unknown Phone Unavailable Allergies Active Description Code Type Severity Reaction Onset Reported/Identified Relationship to Patient Clinical Status Yes No Known Medication Allergies Drug N/A N/A Yes No Known Drug Allergies [id number] Drug Allergy Unknown N/A 09/20/2018 Medications There is no data. Problems Date Dx Coded Attending Type Code Diagnosis Diagnosed By 07/14/2017 R05 Cough 05/31/2018 JO-ANN CARTER MD, Ot E78.5 HYPERLIPIDEMIA, UNSPECIFIED 05/31/2018 JO-ANN CARTER MD, Ot K21.9 GASTRO-ESOPHAGEAL REFLUX DISEASE WITHOUT 05/31/2018 JO-ANN CARTER MD, Ot R07.89 OTHER CHEST PAIN 05/31/2018 JO-ANN CARTER MD, Ot Z79.899 OTHER NREMT (CURRENT) DRUG THERAPY 05/31/2018 JO-ANN CARTER MD, Ot Z82.49 FAMILY HX OF [place] HEART DIS AND OTH DI 05/31/2018 JO-ANN CARTER MD, Ot Z85.828 PERSONAL HISTORY OF OTHER MALIGNANT NEOP 06/20/2018 Stewart CHENEY MD, Ot E78.5 HYPERLIPIDEMIA, UNSPECIFIED 06/20/2018 Stewart CHENEY MD Ot I11.9 HYPERTENSIVE HEART DISEASE WITHOUT HEART 06/20/2018 Stewart CHENEY MD Ot I25.10 ATHSCL HEART DISEASE OF [place] CORONARY 06/20/2018 Stewart CHENEY MD, Ot Z82.49 FAMILY HX OF ISCHEM HEART DIS AND OTH DI 06/27/2018 E78.2 Eruptive xanthoma 06/27/2018 I25.10 CAD 06/27/2018 Z12.5 Prostate cancer screening 09/21/2018 ADAM CARMICHAEL, CHEIKH Miner Ot Z01.818 ENCOUNTER FOR OTHER PREPROCEDURAL EXAMIN Procedures There is no data. Results Test [...] VLDL measurement (mass/volume) 42 mg/ dL 5-40 Methicillin resistant Staphylococcus aureus (MRSA) screening culture - 07:10 Methicillin resistant Staphylococcus aureus (MRSA) screening culture [facility]G [facility] Automated blood complete blood count (hemogram) panel [...] Status Pt. Type Provider Facility Loc./Unit Complaint [id number] 08/12/2018 20:08:39 ACT Unknown [id number] 09/20/2018 08:39:00 09/20/2018 11:39:00 DIS Outpatient CHEIKH MEDINA MD [facility] PREOP EGD [id number] 06/16/2018 06:58:00 06/16/2018 12:15:00 DIS Outpatient Stewart CHENEY MD [facility] CATH RECURRENT CHEST PAIN [id number] 05/30/2018 14:41:00 05/31/2018 13:40:00 DIS Inpatient JO-ANN CARTER MD [facility] 4TH CHEST PAIN [id number] 09/23/2018 07:19:00 ACT Outpatient CHEIKH MEDINA MD [facility] ENDO BARRETS ESOPHAGUS [id number] 08/03/2016 01:51:59 ACT Document Registration [id number] 07/03/2017 10:33:00 07/03/2017 11:50:00 DIS Emergency KAY BAÑUELOS [facility] ED ed visit
[2018-09-23 07:25] VITALS: BP 115/76
[2018-09-23] MEDS ORDERED: D5 LR IV SOLUTION 1,000 ML IV STA (07:27)
[2018-09-23] MEDS ORDERED: D5 LR IV SOLUTION 1,000 ML IV ONE (07:28)
[2018-09-23] MEDS ORDERED: HURRICAINE EXT TUBE (BENZOCAINE) XX PRN (07:30)
[2018-09-23] MEDS ORDERED: fentaNYL INJECTION 100 MCG/2 ML AMP IVP ONE (07:30)
[2018-09-23] MEDS ORDERED: LIDOCAINE JELLY 2% 6 ML SYRINGE MM PRN (07:30)
[2018-09-23] MEDS ORDERED: MIDAZOLAM 2 MG/2 ML (VERSED) VIAL IVP ONE (07:30)
[2018-09-23] MEDS ORDERED: MIDAZOLAM 2 MG/2 ML (VERSED) VIAL ONE ×3 (07:56)
[2018-09-23] MEDS ORDERED: fentaNYL INJECTION 100 MCG/2 ML AMP ONE (07:56)
[2018-09-23] MEDS ORDERED: HURRICAINE EXT TUBE (BENZOCAINE) ONE (07:56)
[2018-09-23] MEDS ORDERED: LIDOCAINE JELLY 2% 6 ML SYRINGE ONE (07:57)
[2018-09-23 08:35] VITALS: BP 117/71
--- NOTE | 2018-09-23 09:22 | Pre-Op Note & Conscious Sedat ---
Pre-Operative Progress Note H&P Reviewed The H&P was reviewed, patient examined and no changes noted. Date H&P Reviewed: Sep 23, 2018 Time H&P Reviewed: 07:55 Conscious Sedation Pre-Proced ASA Score 2 For ASA 3 and 4: Consider anesthesia and medical clearance. Also, for patients with a history of failed moderate sedation consider anesthesia. Airway Lungs Heart ASA score ASA 1: a normal healthy patient ASA 2: a patient with a mild systemic disease (mid diabetes, controlled hypertension, obesity ASA 3: a patient with a severe systemic disease that limits activity (angina , COPD, prior Myocardial infarction) ASA 4: a patient with an incapacitating disease that is a constant threat to life (CHF, renal failure) ASA 5: a moribund patient not expected to survive 24 hrs. (ruptured aneurysm) ASA 6: a declared brain- patient whose organs are being harvested. For emergent operations, add the letter E after the classification Mallampati Classification Grade 3 Sedation Plan Analgesia, Amnesia, Plan communicated to team members, Discussed options with patient/fam, Discussed risks with patient/fam The patient is an appropriate candidate to undergo the planned procedure, sedation, and anesthesia. The patient immediately re-assessed prior to indication. CHEIKH MEDINA MD Sep 23, 2018 09:22
[2018-09-23 10:00] VITALS: BP 117/73
[2018-09-23 10:10] VITALS: BP 117/73
--- NOTE | 2018-09-23 18:31 | OPERATIVE REPORT ---
DATE OF SERVICE: 09/23/2018 EGD SUMMARY INDICATION FOR THE PROCEDURE: Surveillance EGD due to past history of Rascon's esophagus. The patient was placed in the left lateral decubitus position. The endoscope was inserted in the oral cavity and under direct visualization, the esophagus was intubated. The endoscope was passed down the esophagus through the stomach and second portion of the duodenum. Careful inspection was made as the endoscope was withdrawn. The patient tolerated the procedure well. FINDINGS: The posterior hypopharynx, arytenoid aperture, true and false vocal folds were unremarkable with no evidence for erythema or polyps. The proximal and mid esophagus were unremarkable. The Z-line was proximally placed at 37 cm from the incisoral orifice secondary to findings compatible with short segment Rascon's. There was no evidence for erosive esophagitis. No nodules or endoscopic findings to suggest malignancy were noted. Four quadrant biopsies were obtained and submitted for histopathology. There was no evidence for hiatal hernia and no rings, webs, strictures were noted. The cardia, fundus, antrum, pylorus, duodenal bulb and second portion of duodenum were unremarkable to visual inspection. ASSESSMENT: EGD findings are compatible with short segment Rascon's with approximately distal 3 cm of the esophagus being involved. There was no evidence for erosive esophagitis or gross evidence to suggest malignancy. We will await histopathology report, but as long as there is no evidence for high grade dysplasia, we will likely advocate repeat surveillance EGD in 3 years. We will be contacting the patient with recommendations and dictate an addendum to this report when histopathology is available. I thank you for the referral of this pleasant gentleman. Sincerely, Job ID: [id number] DocumentID: [id number] Dictated Date: 09/23/2018 11:05:39 Frame Hand Date: 09/23/2018 18:30:50 Dictated By: CHEIKH MEDINA MD
--- NOTE | 2018-09-27 17:42 | OPERATIVE REPORT ---
DATE OF SERVICE: ADDENDUM I performed an EGD on the patient for surveillance due to the past history of Rascon's esophagus without history of dysplasia. He is deemed to be in the low risk category as he has short segment Rascon's involving only about the distal 3 cm of the esophagus and four quadrant biopsies again revealed no evidence for dysplasia. He has no family history for reported GI tract malignancy with no smoking history and no significant alcohol consumption. We discussed non-medication reflux management in addition to the importance of continuing regular proton pump inhibitor therapy. I would advocate repeat surveillance EGD in 2 to 3 years. I would estimate his lifetime risk for adenocarcinoma of the esophagus at being less than 1 in 250. I thank you for the referral of this pleasant gentleman. Job ID: [id number] DocumentID: [id number] Dictated Date: 09/27/2018 09:36:48 Sheet Metal Duct Worker Supervisor Date: 09/27/2018 15:52:50 Dictated By: CHEIKH MEDINA MD
== END 2018-09-23 10:10 | disposition home or self-care (01) ==
LOC: ENDO 07:19
PROVIDERS: ATTEND Internal Medicine
DX: K22.70 Barrett's esophagus without dysplasia (principal); I25.10 Atherosclerotic heart disease of native coronary artery without angina pectoris; E78.5 Hyperlipidemia, unspecified; Z79.82 Long term (current) use of aspirin; Z79.899 Other long term (current) drug therapy

== ENCOUNTER → 2019-01-16 | Outpatient (CLI) | payer BC ==
--- NOTE | 2019-01-16 11:17 | Diagnostic Imaging Report ---
Indication: Positive TB skin test. Time of exam: 10:25 AM Correlation made with prior study from 05/30/2018. The heart size is normal. The lungs are clear. No infiltrates are seen. No findings to suggest tuberculosis are identified. There is no effusion or pneumothorax. Impression: No acute abnormality is detected. Dictated by: Dictated on workstation # [id number]
== END ==
LOC: RAD 10:08
PROVIDERS: ATTEND Internal Medicine
DX: R76.11 Nonspecific reaction to tuberculin skin test without active tuberculosis (principal)
CPT/HCPCS: 71046

== ENCOUNTER 2019-02-02 12:50 | Outpatient (CLI) | payer BC | END 2019-02-02 13:25 | disposition home or self-care (01) | LOC: SLEEP 12:50 | PROVIDERS: ATTEND Nurse Practitioner | DX: G47.33 Obstructive sleep apnea (adult) (pediatric) (principal); G47.10 Hypersomnia, unspecified ==

== ENCOUNTER → 2019-07-11 | Outpatient (CLI) | payer BC ==
--- NOTE | 2019-07-11 09:46 | Diagnostic Imaging Report ---
PROCEDURE: US Gallbladder. TECHNIQUE: Multiple real-time grayscale images were obtained over the right upper quadrant in various projections. INDICATION: Right upper quadrant pain and nausea and vomiting. FINDINGS: The liver is normal in size at 17.4 cm. No discrete liver mass is identified. Gallbladder is without stones or sludge. No wall thickening or biliary ductal dilatation is seen. Pancreas, aorta and IVC were obscured by bowel gas. Right kidney contains a simple appearing cyst in the lower pole approximately 5 cm in size. No calculi or hydronephrosis is seen. There is no ascites. IMPRESSION: 1. No evidence of cholelithiasis or acute cholecystitis. 2. 5 cm right renal cyst. Dictated by: Dictated on workstation # [id number]
== END ==
LOC: RAD 08:41
PROVIDERS: ATTEND Internal Medicine
DX: N28.1 Cyst of kidney, acquired (principal)
CPT/HCPCS: 76705

== ENCOUNTER → 2020-01-18 | Outpatient (CLI) | payer BC ==
[~2020-01-18] MED LIST changes: +CATHETER FLUSH 10 ML SYR IV PRN; +SIMV20TA26 PO; -SIMV20TA3 PO
--- NOTE | 2020-01-18 12:09 | Diagnostic Imaging Report ---
INDICATION: Swelling of the hands. COMPARISON: None. FINDINGS: Multiple radiographic views of the bilateral hands were obtained and show no fractures, dislocations, or other acute bony abnormalities. Joint spaces are well maintained throughout. The soft tissues appear unremarkable. No radiopaque foreign bodies are identified. IMPRESSION: Unremarkable radiographic exam of the bilateral hands. Dictated by: Dictated on workstation # [id number]
--- NOTE | 2020-01-18 16:42 | Diagnostic Imaging Report ---
INDICATION: Right upper quadrant pain EXAM: Hepatobiliary scan 5.4 mCi of technetium 99m Choletec was given for the scan. Eight ounces of Ensure was given for the ejection fraction. The cystic duct and common duct are both patent. There is homogeneous uptake of isotope throughout the liver. The gallbladder ejection fraction was calculated at 37%. IMPRESSION: Normal hepatobiliary scan. Dictated by: Dictated on workstation # [id number]
== END ==
LOC: CARD 11:06
PROVIDERS: ATTEND Internal Medicine
DX: R10.11 Right upper quadrant pain (principal); M79.89 Other specified soft tissue disorders
CPT/HCPCS: 73130; 78227; A9537

== ENCOUNTER 2020-01-29 05:41 | Outpatient (RCR) | payer BC ==
[~2020-01-29] VITALS: Ht 170 cm; Wt 104.0 kg
[~2020-01-29 05:41] MED LIST changes: -CATHETER FLUSH 10 ML SYR IV PRN
== END 2020-01-29 11:20 | disposition home or self-care (01) ==
LOC: PREOP 05:41
PROVIDERS: ATTEND Surgery
DX: Z01.812 Encounter for preprocedural laboratory examination (principal); K82.8 Other specified diseases of gallbladder; K22.70 Barrett's esophagus without dysplasia; Z20.828 Contact with and (suspected) exposure to other viral communicable diseases
CPT/HCPCS: 87635

== ENCOUNTER 2020-02-01 08:25 | Day surgery (SDC) | payer BC ==
[~2020-02-01] VITALS: Ht 170 cm; Wt 104.0 kg
[2020-02-01] VITALS (10 sets, daily range): BP systolic 130–146; BP diastolic 65–98
--- OUTSIDE RECORDS SUMMARY | 2020-02-01 08:30 | XMS REPORT | Continuity of Care Document ---
Author Organization Unknown Address Unknown Phone Unavailable Allergies Active Description Code Type Severity Reaction Onset Reported/Identified Relationship to Patient Clinical Status Yes No Known Medication Allergies Drug N/A N/A Yes No Known Drug Allergies [id number] Drug Allergy Unknown N/A 01/25/2020 Medications There is no data. Problems Date Dx Coded Attending Type Code Diagnosis Diagnosed By 07/14/2017 R05 Cough 05/31/2018 JO-ANN CARTER MD, Ot E78. 5 HYPERLIPIDEMIA, UNSPECIFIED 05/31/2018 JO-ANN CARTER MD, Ot K21. 9 GASTRO-ESOPHAGEAL REFLUX DISEASE WITHOUT 05/31/2018 JO-ANN CARTER MD Ot R07. 89 OTHER CHEST PAIN 05/31/2018 JO-ANN CARTER MD, Ot Z79.899 OTHER LITIGATION LEGAL SECRETARY (CURRENT) DRUG THERAPY 05/31/2018 JO-ANN CARTER MD, Ot Z82. 49 FAMILY HX OF [place]HE[place] HEART DIS AND OTH DI 05/31/2018 JO-ANN CARTER MD Ot Z85.828 PERSONAL HISTORY OF OTHER MALIGNANT NEOP 06/16/2018 Stewart CHENEY MD, Ot E78 .5 HYPERLIPIDEMIA, UNSPECIFIED 06/16/2018 Stewart CHENEY MD Ot I11 .9 HYPERTENSIVE HEART DISEASE WITHOUT HEART 06/16/2018 Stewart CHENEY MD Ot I25.10 ATHSCL HEART DISEASE OF [place] CORONARY 06/16/2018 Stewart CHENEY MD Ot Z82.49 FAMILY HX OF ISCHEM HEART DIS AND OTH DI 06/20/2018 Stewart CHENEY MD, Ot E78 .5 HYPERLIPIDEMIA, UNSPECIFIED 06/20/2018 Stewart CHENEY MD Ot I11 .9 HYPERTENSIVE HEART DISEASE WITHOUT HEART 06/20/2018 Stewart CHENEY MD Ot I25.10 ATHSCL HEART DISEASE OF [place] CORONARY 06/20/2018 Stewart CHENEY MD Ot Z82.49 FAMILY HX OF ISCHEM HEART DIS AND OTH DI 06/27/2018 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 5 HYPERLIPIDEMIA, UNSPECIFIED 09/23/2018 CHEIKH MEDINA MD, Ot I25. 10 ATHSCL HEART DISEASE OF [place] CORONARY 09/23/2018 CHEIKH MEDINA MD, Ot K22. 70 BENAVIDES'S ESOPHAGUS WITHOUT DYSPLASIA 09/23/2018 CHEIKH MEDINA MD, Ot Z79. 82 LONG-TERM (CURRENT) USE OF ASPIRIN 09/23/2018 CHEIKH MEDINA MD, Ot Z79.899 OTHER LONG-TERM (CURRENT) DRUG THERAPY 09/26/2018 CHEIKH MEDINA MD, Ot E78. 5 HYPERLIPIDEMIA, UNSPECIFIED 09/26/2018 CHEIKH MEDINA MD, Ot I25. 10 ATHSCL HEART DISEASE OF [place] CORONARY 09/26/2018 CHEIKH MEDINA MD, Ot K22. 70 BENAVIDES'S ESOPHAGUS WITHOUT DYSPLASIA 09/26/2018 CHEIKH MEDINA MD, Ot Z79. 82 LONG-TERM (CURRENT) USE OF ASPIRIN 09/26/2018 CHEIKH MEDINA MD, Ot Z79.899 OTHER LONG-TERM (CURRENT) DRUG THERAPY 01/22/2019 GEORGINA MEDINA MD Ot R76.1 1 NONSPECIFIC REACTION TO SKIN TEST W/O AC 02/02/2019 ARLENE ESQUIVEL APRN Ot G47.10 HYPERSOMNIA, UNSPECIFIED 02/02/2019 ARLENE ESQUIVEL APRN Ot G47.33 OBSTRUCTIVE SLEEP APNEA (ADULT) (PEDIATR 07/10/2019 GEORGINA MEDINA MD Ot R76.1 1 NONSPECIFIC REACTION TO SKIN TEST W/O AC 07/27/2019 GEORGINA MEDINA MD Ot N28.1 CYST OF KIDNEY, ACQUIRED 01/22/2020 GEORGINA MEDINA MD Ot M79.8 9 OTHER SPECIFIED SOFT TISSUE DISORDERS 01/22/2020 GEORGINA MEDINA MD Ot R10.1 1 RIGHT UPPER QUADRANT PAIN Procedures There is no data. Results Test Result Range Complete blood count (CBC) with automate d white blood cell (WBC) differential - 05/30/18 13:18 Blood leukocytes automated count (number/volume) 5.9 10*3/uL 4.3-11.0 Blood erythrocytes automated count (number/volume) 5.17 10*6/uL 4.35-5.85 Venous blood hemoglobin measurement (mass/volume) 16.3 g/dL 13.3-17.7 Blood hematocrit (volume fraction) 47 % 40-54 Automated erythrocyte mean corpuscular volume 91 [ foz_us] 80-99 Automated erythrocyte mean corpuscular h emoglobin (mass per erythrocyte) 32 pg 25-34 Automated erythrocyte mean corpuscular h emoglobin concentration measurement (mass/volume) 35 g/dL 32-36 Automated erythrocyte distribution width ratio 12. 8 % 10.0- 14.5 Automated blood platelet count (count/volume) 299 10*3/uL [...] 10*3 1.0-4.0 Blood monocytes automated count (number/volume) 0. 6 10*3 0.0-1.0 Automated eosinophil count 0.1 10*3/uL 0 .0-0.3 Automated blood basophil count (count/volume) 0.1 10*3/uL 0.0-0.1 PT panel in platelet poor plasma by coag ulation assay - 05/30/18 13:18 Prothrombin time (PT) in platelet poor plasma by coagu lation assay 13.6 s 12.2-14.7 INR in platelet poor plasma or blood by coagulation as say 1.0 0.8-1.4 Activated partial thromboplastin time (a PTT) in platelet poor plasma bycoagulation assay - 05/30/18 13:18 Activated partial thromboplastin time (a PTT) in platelet poor plasma bycoagulation assay 31 s 24-35 Comprehensive metabolic panel - 05/30/18 13:18 Serum or plasma sodium measurement (moles/volume) 141 mmol/L 135-145 Serum or plasma potassium measurement (moles/volume) 3.8 mmol/L 3.6-5.0 Serum or plasma chloride measurement (moles/volume) 108 mmol/L 98-107 Carbon dioxide 24 mmol/L 21-32 Serum or plasma anion gap determination (moles/volume) 9 mmol/L 5-14 Serum or plasma urea nitrogen measurement (mass/volume ) 9 mg/dL 7-18 Serum or plasma creatinine measurement (mass/volume) 1.19 mg/dL 0.60-1.30 Serum or plasma urea nitrogen/creatinine mass ratio 8 NRG Serum or plasma creatinine measurement w ith calculation of estimated glomerular filtration rate > NRG Serum or plasma glucose measurement (mass/volume) 97 mg/dL 70-105 Serum or plasma calcium measurement (mass/volume) 9.4 mg/dL 8.5-10.1 Serum or plasma total bilirubin measurement (mass/volu me) 0.5 mg/dL 0.1-1.0 Serum or plasma alkaline phosphatase nathalie surement (enzymatic activity/volume) 62 U/L 40-136 Serum or plasma aspartate aminotransfera se measurement (enzymatic activity/volume) 25 U/L 5-34 Serum or plasma alanine aminotransferase measurement (enzymatic activity/volume) 48 U/L 0-55 Serum or plasma protein measurement (mass/volume) 7.1 g/dL 6.4-8.2 Serum or plasma albumin measurement (mass/volume) 4.6 g/dL 3.2-4.5 Magnesium - 05/30/18 13:18 Magnesium 2.5 mg/dL 1.8-2.4 Serum or plasma troponin i.cardiac measu rement (mass/volume) - 05/30/18 13:18 Serum or plasma troponin i.cardiac measurement (mass/v olume) < ng/mL <0.30 Myoglobin, serum - 05/30/18 13:18 Myoglobin, serum 25.0 ng/mL 10.0-92.0 Serum or plasma troponin i.cardiac measu rement (mass/volume) - 05/30/18 15:30 Serum or plasma troponin i.cardiac measurement (mass/v olume) < ng/mL <0.30 Serum or plasma troponin i.cardiac measu rement (mass/volume) - 05/30/18 21:05 Serum or plasma troponin i.cardiac measurement (mass/v olume) < ng/mL <0.30 Lipid 1996 panel - 05/31/18 06:01 Serum or plasma triglyceride measurement (mass/volume) 212 mg/dL <150 Serum or plasma cholesterol measurement (mass/volume) 203 mg/dL < 200 Serum or plasma cholesterol in HDL measurement (mass/v olume) 34 mg/dL 40-60 Cholesterol in LDL [mass/volume] in serum or plasma by direct assay 141 mg/dL 1-129 Serum or plasma cholesterol in VLDL measurement (mass/ volume) 42 mg/dL 5-40 Methicillin resistant Staphylococcus aur eus (MRSA) screening culture - 06/16/18 07:10 Methicillin resistant Staphylococcus aureus (MRSA) scr eening culture NEG NRG Automated blood complete blood count (he mogram) panel - 06/16/18 07:20 Blood leukocytes automated count (number/volume) 5.8 10*3/uL 4.3-11.0 Blood erythrocytes automated count (number/volume) 4.96 10*6/uL 4.35-5.85 Venous blood hemoglobin measurement (mass/volume) 15.8 g/dL 13.3-17.7 Blood hematocrit (volume fraction) 46 % 40-54 Automated erythrocyte mean corpuscular volume 92 [ foz_us] 80-99 Automated erythrocyte mean corpuscular h emoglobin (mass per erythrocyte) 32 pg 25-34 Automated erythrocyte mean corpuscular h emoglobin concentration measurement (mass/volume) 35 g/dL 32-36 Automated erythrocyte distribution width ratio 13. 1 % 10.0- 14.5 Automated blood platelet count (count/volume) 296 10*3/uL 130-400 Automated blood platelet mean volume measurement 8.8 [foz_us] 7.4-10.4 PT panel in platelet poor plasma by coag ulation assay - 06/16/18 07:20 Prothrombin time (PT) in platelet poor plasma by coagu lation assay 13.8 s 12.2-14.7 INR in platelet poor plasma or blood by coagulation as say 1.1 0.8-1.4 Activated partial thromboplastin time (a PTT) in platelet poor plasma bycoagulation assay - 06/16/18 07:20 Activated partial thromboplastin time (a PTT) in platelet poor plasma bycoagulation assay 33 s 24-35 Comprehensive metabolic panel - 06/16/18 07:20 Serum or plasma sodium measurement (moles/volume) 140 mmol/L 135-145 Serum or plasma potassium measurement (moles/volume) 3.9 mmol/L 3.6-5.0 Serum or plasma chloride measurement (moles/volume) 107 mmol/L 98-107 Carbon dioxide 23 mmol/L 21-32 Serum or plasma anion gap determination (moles/volume) 10 mmol/L 5-14 Serum or plasma urea nitrogen measurement (mass/volume ) 14 mg/dL 7-18 Serum or plasma creatinine measurement (mass/volume) 1.09 mg/dL 0.60-1.30 Serum or plasma urea nitrogen/creatinine mass ratio 13 NRG Serum or plasma creatinine measurement w ith calculation of estimated glomerular filtration rate > NRG Serum or plasma glucose measurement (mass/volume) 111 mg/dL 70-105 Serum or plasma calcium measurement (mass/volume) 9.2 mg/dL 8.5-10.1 Serum or plasma total bilirubin measurement (mass/volu me) 0.6 mg/dL 0.1-1.0 Serum or plasma alkaline phosphatase nathalie surement (enzymatic activity/volume) 56 U/L 40-136 Serum or plasma aspartate aminotransfera se measurement (enzymatic activity/volume) 23 U/L 5-34 Serum or plasma alanine aminotransferase measurement (enzymatic activity/volume) 41 U/L 0-55 Serum or plasma protein measurement (mass/volume) 6.9 g/dL 6.4-8.2 Serum or plasma albumin measurement (mass/volume) 4.5 g/dL 3.2-4.5 CALCIUM CORRECTED 8.8 mg/dL 8.5-10.1 Encounters ACCT No. Visit Date/Time Discharge Status Pt. Type Provider Facility Loc./Unit Complaint [id number] 02/03/2019 20:08:15 ACT Unknown [id number] 01/29/2020 05:41:00 11:20:00 DIS Outpatient RACHNA PEARSON MD [facility] PREOP BILIARY DYSKINESIA, REF LUX [id number] 01/18/2020 11:06:00 23:59:59 CLS Outpatient GEORGINA MEDINA MD [facility] CARD RUQ PAIN [id number] 07/11/2019 08:41:00 23:59:59 CLS Outpatient GEORGINA MEDINA MD [facility] RAD ABD PAIN [id number] 02/02/2019 12:50:00 13:25:00 DIS Outpatient ARLENE ESQUIVEL APRN [facility] SLEEP MK [id number] 01/16/2019 10:08:00 23:59:59 CLS Outpatient GEORGINA MEDINA MD [facility] RAD POS T.B SKIN TEST [id number] 09/23/2018 07:19:00 10:10:00 DIS Outpatient CHEIKH MEDINA MD [facility] ENDO BARRETS ESOPHAGUS [id number] 09/20/2018 08:39:00 11:39:00 DIS Outpatient CHEIKH MEDINA MD [facility] PREOP EGD [id number] 06/16/2018 06:58:00 12:15:00 DIS Outpatient NONI CARMICHAEL, Stewart KENDRICK [facility] CATH RECURRENT CHEST PAIN [id number] 05/30/2018 14:41:00 13:40:00 DIS Inpatient JO-ANN CARTER MD [facility] 4TH CHEST PAIN [id number] 02/01/2020 08:25:[address] Outpatient RACHNA PEARSON MD [facility] [place] SDC BILIARY DYSKINESIA, REFLUX [id number] 02/04/2019 00:39:32 ACT Document Registration [id number] 07/03/2017 10:33:00 11:50:00 DIS Emergency KAY BAÑUELOS [facility] ED ed visit
[2020-02-01] MEDS ORDERED: ceFAZolin 2 GM IV Premixed 50 ML ONE (08:56)
[2020-02-01 09:02] LABS: BASOPHILS % (AUTO) 1 % (0-10); EOSINOPHILS # (AUTO) 0.4 10^3/uL (0.0-0.3); EOSINOPHILS % (AUTO) 8 % (0-10); HEMATOCRIT 48 % (40-54); HEMOGLOBIN 15.9 G/DL (13.3-17.7); LYMPHOCYTES # (AUTO) 1.6 X 10^3 (1.0-4.0); LYMPHOCYTES % (AUTO) 28 % (12-44); MEAN CORPUSCULAR HEMOGLOBIN 31 PG (25-34); MEAN CORPUSCULAR HGB CONC 34 G/DL (32-36); MEAN CORPUSCULAR VOLUME 93 FL (80-99); MEAN PLATELET VOLUME 8.9 FL (7.4-10.4); MONOCYTES # (AUTO) 0.7 X 10^3 (0.0-1.0); MONOCYTES % (AUTO) 12 % (0-12); NEUTROPHILS % (AUTO) 52 % (42-75); PLATELET COUNT 296 10^3/uL (130-400); RED CELL DISTRIBUTION WIDTH 13.5 % (10.0-14.5); WHITE BLOOD COUNT 5.8 10^3/uL (4.3-11.0)
[2020-02-01] MEDS ORDERED: LACTATED RINGERS 1,000 ML IV PRN (09:04)
[2020-02-01] MEDS ORDERED: ceFAZolin 2 GM IV Premixed 50 ML IV ONE (09:15)
[2020-02-01] MEDS ORDERED: BUP/EPI 0.5% 1:200,000 (SENSORCAINE) 30 ML VIAL ONE (09:32)
[2020-02-01] MEDS ORDERED: ROCURONIUM 10 MG/ML 5 ML SYRINGE IV ONE (10:11)
[2020-02-01] MEDS ORDERED: SEVOFLURANE (ULTANE) 15 ML INHAL SOLN ONE ×3 (10:11→11:24)
[2020-02-01] MEDS ORDERED: proPOfol 200 MG/20 ML (DIPRIVAN) VIAL IV ONE (10:11)
[2020-02-01] MEDS ORDERED: fentaNYL INJECTION 100 MCG/2 ML AMP ONE (10:11)
[2020-02-01] MEDS ORDERED: LIDOCAINE PF 2% 5 ML (XYLOCAINE) VIAL ONE (10:11)
[2020-02-01] MEDS ORDERED: SUCCINYLCHOLINE INJ 100 MG/5 ML SYR ONE (10:11)
[2020-02-01] MEDS ORDERED: MIDAZOLAM 2 MG/2 ML (VERSED) VIAL ONE (10:12)
[2020-02-01] MEDS ORDERED: ONDANSETRON 4 MG/2 ML (SDV) Z0FRAN IV ONE (10:15)
[2020-02-01] MEDS ORDERED: FAMOTIDINE 20MG/2ML IV (PEPCID) IV ONE (10:15)
--- NOTE | 2020-02-01 11:37 | Progress Note-Pre Operative ---
Pre-Operative Progress Note H&P Reviewed The H&P was reviewed, patient examined and no changes noted. Date Seen by Provider: Feb 01, 2020 Time Seen by Provider: 10:10 Date H&P Reviewed: Feb 01, 2020 Time H&P Reviewed: 10:05 Pre-Operative Diagnosis: Symptomatic biliary dyskinesia and reflux ESME DIXON APRN Feb 01, 2020 11:37
[2020-02-01] MEDS ORDERED: SUCR1TAB36 PO (11:41)
[2020-02-01] MEDS ORDERED: HYDR-4227 PO (11:41)
--- NOTE | 2020-02-01 11:41 | Discharge Inst-Surgical ---
D/C Lap Instructions-KIDO Reconcile Patient Problems Problems Reviewed?: Yes New, Converted, or Re-Newed RX: RX on Chart Follow Up Appt in 2 weeks Activity as tolerated No driving for 24 hours No driving while on pain medications Incentive Spirometry use every 2 hours while awake Regular Diet Symptoms to Report: Fever over 101 degree F, Nausea/Vomiting Infection Signs and Symptoms to report: Increased redness, Foul odor of wound, Increased drainage Bathing instructions: May shower Operative Area Clean/Dry; Keep incision clean/dry If any problems/questions: Contact your physician or go to Emergency Room ESME DIXON APRN Feb 01, 2020 11:41
[2020-02-01] MEDS ORDERED: morphine INJ 10 MG/ML 1ML (SYR OR VIAL) ONE (11:42)
--- NOTE | 2020-02-01 11:44 | Progress Note-Post Operative ---
Post-Operative Progess Note Surgeon (s)/Numerical Tool Programmer (s) Surgeon Dr. Dustin George M.D. Numerical Tool Programmer: Oracio Dixon BLUEPRINT CLERK Pre-Operative Diagnosis Symptomatic biliary dyskinesia and reflux Post-Operative Diagnosis Biliary dyskinesia, reflux esophagitis stage 2-3, small hiatal hernia (2 cm), moderate gastritis Procedure & Operative Findings Date of Procedure 02/01/20 Procedure Performed/Findings Laparoscopic cholecystectomy and EGD with biopsy Anesthesia Type GET Estimated Blood Loss Estimated blood loss (mL): Minimal Specimens/Packing Specimens Removed 1) Gallbladder 2) Antrum 3) GE junction ORACIO DIXON BLUEPRINT CLERK Feb 01, 2020 11:44
[2020-02-01] MEDS ORDERED: morphine INJ 10 MG/ML 1ML (SYR OR VIAL) IVP PRN (11:45)
[2020-02-01] MEDS ORDERED: ACETAMINOPHEN 325 MG TABLET PO PRN (11:45)
[2020-02-01] MEDS ORDERED: KETOROLAC 30 MG/ML VIAL ONE (11:45)
[2020-02-01] MEDS ORDERED: ONDANSETRON 4 MG/2 ML (SDV) Z0FRAN IVP PRN ×2 (11:45→12:00)
[2020-02-01] MEDS ORDERED: HYDROcodone/APAP 5 MG/325 MG (LORTAB) TAB PO ONE (11:45)
[2020-02-01] MEDS ORDERED: HYDROmorphone 2 MG/ML VIAL (DILAUDID) ONE (11:57)
[2020-02-01] MEDS ORDERED: HYDROmorphone 2 MG/ML VIAL (DILAUDID) IV ONE (12:00)
[2020-02-01] MEDS ORDERED: KETOROLAC 30 MG/ML VIAL IVP ONE (12:00)
[2020-02-01] MEDS ORDERED: MEPERIDINE (DEMEROL) INJ 50 MG/ML IVP ONE (12:00)
[2020-02-01] MEDS ORDERED: morphine INJ 10 MG/ML 1ML (SYR OR VIAL) IVP ONE (12:00)
--- NOTE | 2020-02-01 14:15 | OPERATIVE REPORT ---
DATE OF SERVICE: 02/01/2020 ATTENDING PRIMARY CARE PHYSICIAN: Dr. Arnie Lo. PREOPERATIVE DIAGNOSES: 1. Symptomatic biliary dyskinesia 2. Gastroesophageal reflux disease. POSTOPERATIVE DIAGNOSES: 1. Chronic acalculous cholecystitis. 2. Reflux esophagitis between stage II and III. 3. Small hiatal hernia approximately 2 cm in size. 4. Moderate gastritis. PROCEDURES PERFORMED: 1. EGD with biopsy. 2. Laparoscopic cholecystectomy. SURGEON: Rachna Pearson MD. ANESTHESIA: General endotracheal. ESTIMATED BLOOD LOSS: Minimal. FINDINGS: Same as postoperative diagnoses. DISPOSITION: The patient tolerated the procedure well. INDICATIONS FOR PROCEDURE: The patient is a 54-year-old male who has had a longstanding history of reflux for greater than 10 years; however, states that this has worsened over the time with epigastric burning sensation and has also had episodes of regurgitation, which has worsened as well. He has also developed pain in the right upper abdominal quadrant as well as a bloating after eating meals. An ultrasound was performed, which did not show any gallstones; however, HIDA scan did show a low ejection fraction and reproduction of symptoms consistent with biliary dyskinesia. DESCRIPTION OF PROCEDURE: The patient was brought to the operating room and laid supine on the table. After adequate IV pain and sedative medications and general endotracheal intubation, the abdomen was prepped and draped in a standard surgical fashion. A 0.5% Marcaine with epinephrine was used to anesthetize the overlying skin in the left upper abdominal quadrant and a transverse skin incision was made using a 15 blade. A 0 silk suture was applied to the medial aspect incision for retraction and a Veress needle inserted with a low opening pressure of 0 mmHg and the abdomen was then insufflated to 15 mmHg pressure. The Veress needle was removed and a 5 mm XL trocar placed followed by a 5 mm 45-degree angle laparoscope visualizing the peritoneal cavity. A 4-quadrant abdominal exploration was performed. There was a thick omentum and mesentery. There were also omental adhesions to the gallbladder consistent with a chronic acalculous cholecystitis. Under direct visualization, we then proceeded to place a supraumbilical 10 mm port after the skin and peritoneal lining were anesthetized using 0.5% Marcaine with epinephrine and a transverse skin incision was made using 15 blade. In a similar manner, a right upper abdominal quadrant 5 mm port was placed. The patient was then placed in reverse Trendelenburg position as well as plane right side up, left side down. The fundus of the gallbladder was then retracted anteriorly and superiorly. The omental adhesions were then taken down using blunt dissection as well as electrocautery and hook instrument. The hepatoduodenal ligament was then opened in a similar fashion. The entire critical view of safety was identified including the triangle of Calot as well as the cystic duct and artery as only two structures going into the gallbladder as well as the cystic plate behind the proximal gallbladder. A timeout was then taken and the cystic duct and artery were then clipped proximally, distally and cut with EndoShears. The gallbladder was then dissected off of the liver bed using electrocautery and the hook instrument with visualization of good hemostasis as well as no leaking ducts of Luschka. The gallbladder was removed through the 10 mm port site using an EndoCatch bag. The 10 mm port site fascia and peritoneum were then closed under direct visualization using Bolivar-Helen device and 0 Vicryl suture. The abdomen was desufflated and remaining ports were removed. All skin incisions were closed using 4-0 Monocryl running subcuticular sutures. Wounds were then cleaned and covered with Dermabond. Under the same anesthesia, we then proceeded with the EGD portion of the procedure and the mouthpiece was applied. The endoscope was placed in the mouth, visualizing the pharynx and hypopharyngeal region. Vocal cords, epiglottis and vallecula were identified and appeared to be normal. The endoscope was then intubated into the esophageal opening and esophagus insufflated. The endoscope was then advanced to the first, second and third portions of esophagus at the level of the GE junction, a reflux esophagitis between stage II and III identified. There were no ulcers or strictures identified in this region. A biopsy was taken with forceps with visualization of good hemostasis. The endoscope was then advanced into the stomach and endoscope retroflexed, visualizing a small hiatal hernia approximately 2 cm in size. There was a moderate severity gastritis. No formal ulcerations, polyps or any neoplasms. A biopsy was taken of the antrum to rule out H. pylori with visualization of good hemostasis. The endoscope was then advanced to the pylorus and the first and second portion of the duodenum, which appeared normal with no distal obstructions. The endoscope was then slowly withdrawn while taking a second look and suctioning of residual air with no additional findings. The patient tolerated the procedure well. We will start IV normal pain medication as well as a clear liquid diet. Once he is tolerating clears, has good pain control with oral pain medications and ambulating well, we will discharge him home. For his reflux esophagitis and hiatal hernia as well as gastritis, we will have him continue with his Protonix 40 mg daily; however, add Carafate one gram q.i.d. for the next two weeks as well on a p.r.n. basis. We will also recommend the necessary lifestyle and diet accommodation including small and more frequent meals, avoidance of eating at night as well as head elevation while lying supine. He also needs to avoid caffeinated beverages, spicy, greasy and acidic foods and proceed with any form of diet and exercise regimen on a regular basis to promote weight loss, which should help with his reflux. Job ID: [id number] DocumentID: [id number] Dictated Date: 02/01/2020 12:29:51 Lithostripper Date: 02/01/2020 14:14:46 Dictated By: RACHNA PEARSON MD
== END 2020-02-01 13:40 | disposition home or self-care (01) ==
LOC: SDC 08:25
PROVIDERS: ATTEND Surgery
DX: K81.1 Chronic cholecystitis (principal); K21.0 Gastro-esophageal reflux disease with esophagitis; K44.9 Diaphragmatic hernia without obstruction or gangrene; K29.70 Gastritis, unspecified, without bleeding; K82.8 Other specified diseases of gallbladder; G47.33 Obstructive sleep apnea (adult) (pediatric); I25.10 Atherosclerotic heart disease of native coronary artery without angina pectoris; F32.9 Major depressive disorder, single episode, unspecified; F41.9 Anxiety disorder, unspecified; E78.00 Pure hypercholesterolemia, unspecified; E66.9 Obesity, unspecified; Z68.36 Body mass index [BMI] 36.0-36.9, adult; Z79.899 Other long term (current) drug therapy; Z83.3 Family history of diabetes mellitus; Z87.19 Personal history of other diseases of the digestive system
CPT/HCPCS: 36415; 85025; 87081

== ENCOUNTER 2020-02-03 03:35 | Emergency (ER) | payer BC ==
[~2020-02-03] VITALS: Ht 170 cm; Wt 103.8 kg
[~2020-02-03 03:35] MED LIST changes: +HYDR-4227 PO; +SUCR1TAB36 PO
--- OUTSIDE RECORDS SUMMARY | 2020-02-03 03:43 | XMS REPORT | Continuity of Care Document ---
Author Organization Unknown Address Unknown Phone Unavailable Allergies Active Description Code Type Severity Reaction Onset Reported/Identified Relationship to Patient Clinical Status Yes No Known Medication Allergies Drug N/A N/A Yes No Known Drug Allergies [id number] Drug Allergy Unknown N/A 01/25/2020 Medications There is no data. Problems Date Dx Coded Attending Type Code Diagnosis Diagnosed By 07/14/2017 R05 Cough 05/31/2018 JO-ANN CARTER MD, Ot E78. 5 HYPERLIPIDEMIA, UNSPECIFIED 05/31/2018 JO-ANN CARTER MD, Ot K21. 9 GASTRO-ESOPHAGEAL REFLUX DISEASE WITHOUT 05/31/2018 JO-ANN CARTER MD Ot R07. 89 OTHER CHEST PAIN 05/31/2018 JO-ANN CARTER MD, Ot Z79.899 OTHER CREDIT SPECIALIST (CURRENT) DRUG THERAPY 05/31/2018 JO-ANN CARTER MD, Ot Z82. 49 FAMILY HX OF ISCHEM HEART DIS AND OTH DI 05/31/2018 JO-ANN CARTER MD Ot Z85.828 PERSONAL HISTORY OF OTHER MALIGNANT NEOP 06/16/2018 Stewart CHENEY MD, Ot E78 .5 HYPERLIPIDEMIA, UNSPECIFIED 06/16/2018 Stewart CHENEY MD Ot I11 .9 HYPERTENSIVE HEART DISEASE WITHOUT HEART 06/16/2018 Stewart CHENEY MD Ot I25.10 ATHSCL HEART DISEASE OF [place] CORONARY 06/16/2018 Stewart CHENEY MD Ot Z82.49 FAMILY HX OF ISCHEM HEART DIS AND OTH DI 06/20/2018 Stewart CHENEY MD, Ot E78 .5 HYPERLIPIDEMIA, UNSPECIFIED 06/20/2018 Stewart CHENEY MD Ot I11 .9 HYPERTENSIVE HEART DISEASE WITHOUT HEART 06/20/2018 Stewart CHENEY MD Ot I25.10 ATHSCL HEART DISEASE OF [place] CORONARY 06/20/2018 Stewart CHENEY MD Ot Z82.49 [...] Ot I25. 10 ATHSCL HEART DISEASE OF [place] CORONARY 09/23/2018 CHEIKH MEDINA MD, Ot K22. 70 BENAVIDES'S ESOPHAGUS WITHOUT DYSPLASIA 09/23/2018 CHEIKH MEDINA MD Ot Z79. 82 HALFWAY (CURRENT) USE OF ASPIRIN 09/23/2018 CHEIKH MEDINA MD, Ot Z79.899 OTHER HALFWAY (CURRENT) DRUG THERAPY 09/26/2018 CHEIKH MEDINA MD, Ot E78. 5 HYPERLIPIDEMIA, UNSPECIFIED 09/26/2018 CHEIKH MEDINA MD Ot I25. 10 ATHSCL HEART DISEASE OF [place] CORONARY 09/26/2018 CHEIKH MEDINA MD Ot K22. 70 BENAVIDES'S ESOPHAGUS WITHOUT DYSPLASIA 09/26/2018 CHEIKH MEDINA MD, Ot Z79. 82 HALFWAY (CURRENT) USE OF ASPIRIN 09/26/2018 CHEIKH MEDINA MD, Ot Z79.899 OTHER HALFWAY (CURRENT) DRUG THERAPY 01/22/2019 GEORGINA MEDINA MD [...] Ot R10.1 1 RIGHT UPPER QUADRANT PAIN 02/02/2020 GEORGINA MEDINA MD, Ot M79.8 9 OTHER SPECIFIED SOFT TISSUE DISORDERS 02/02/2020 GEORGINA MEDINA MD, Ot R10.1 1 RIGHT UPPER QUADRANT PAIN [...] g/dL 3.2-4.5 CALCIUM CORRECTED 8.8 mg/dL 8.5-10.1 Coronavirus SARS-CoV-2 SO 2018 - 0 08:00 Coronavirus Ab [Units/volume] in Serum Negative Negative Complete blood count (CBC) with automate d white blood cell (WBC) differential - 02/01/20 08:55 Blood leukocytes automated count (number/volume) 5.8 10*3/uL 4.3-11.0 Blood erythrocytes automated count (number/volume) 5.12 10*6/uL 4.35-5.85 Venous blood hemoglobin measurement (mass/volume) 15.9 g/dL 13.3-17.7 Blood hematocrit (volume fraction) 48 % 40-54 Automated erythrocyte mean corpuscular volume 93 [ foz_us] 80-99 Automated erythrocyte mean corpuscular h emoglobin (mass per erythrocyte) 31 pg 25-34 Automated erythrocyte mean corpuscular h emoglobin concentration measurement (mass/volume) 34 g/dL 32-36 Automated erythrocyte distribution width ratio 13. 5 % 10.0- 14.5 Automated blood platelet count (count/volume) 296 10*3/uL 130-400 Automated blood platelet mean volume measurement 8.9 [foz_us] 7.4-10.4 Automated blood neutrophils/100 leukocytes 52 % 42-75 Automated blood lymphocytes/100 leukocytes 28 % 12-44 Blood monocytes/100 leukocytes 12 % 0-12 Automated blood eosinophils/100 leukocytes 8 % 0-10 Automated blood basophils/100 leukocytes 1 % 0-10 Blood neutrophils automated count (number/volume) 3.0 10*3 1.8-7.8 Blood lymphocytes automated count (number/volume) 1.6 10*3 1.0-4.0 Blood monocytes automated count (number/volume) 0. 7 10*3 0.0-1.0 Automated eosinophil count 0.4 10*3/uL 0 .0-0.3 Automated blood basophil count (count/volume) 0.0 10*3/uL 0.0-0.1 Methicillin resistant Staphylococcus aur eus (MRSA) screening culture - 02/01/20 08:55 Methicillin resistant Staphylococcus aureus (MRSA) scr eening culture NEG NRG Encounters ACCT No. Visit Date/Time Discharge Status Pt. Type Provider Facility Loc./Unit Complaint [id number] 02/03/2019 20:08:15 ACT Unknown [id number] 02/01/2020 08:25:00 13:40:00 DIS Outpatient LILI CARMICHAEL, RACHNA [facility] BILIARY DYSKINESIA, REF LUX [id number] 01/29/2020 05:41:00 11:20:00 DIS Outpatient RACHNA PEARSON MD [facility] PREOP BILIARY DYSKINESIA, REF LUX [id number] 01/18/2020 11:06:00 23:59:59 CLS Outpatient GEORGINA MEDINA MD [facility] CARD RUQ PAIN [id number] 07/11/2019 08:41:00 23:59:59 CLS Outpatient GEORGINA MEDINA MD [facility] RAD ABD PAIN [id number] 02/02/2019 12:50:00 13:25:00 DIS Outpatient ARLENE ESQUIVEL APRN [facility] SLEEP MK [id number] 01/16/2019 10:08:00 23:59:59 CLS Outpatient GEORGINA MEDINA MD [facility] RAD POS T.B SKIN TEST [id number] 09/23/2018 07:19:00 10:10:00 DIS Outpatient CHEIKH MEDINA MD [facility] ENDO BARRETS ESOPHAGUS [id number] 09/20/2018 08:39:00 11:39:00 DIS Outpatient CHEIKH MEDINA MD [facility] PREOP EGD [id number] 06/16/2018 06:58:00 12:15:00 DIS Outpatient Stewart CHENEY MD [facility] CATH RECURRENT CHEST PAIN [id number] 05/30/2018 14:41:00 018 13:40:00 DIS Inpatient JO-ANN CARTER MD [facility] 4TH CHEST PAIN [id number] 02/04/2019 00:39:32 ACT Document Registration [id number] 07/03/2017 10:33:00 7 11:50:00 DIS Emergency KAY BAÑUELOS [facility] SELVIN ED ed visit
[2020-02-03] MEDS ORDERED: morphine INJ 10 MG/ML 1ML (SYR OR VIAL) IVP ONE (03:45)
[2020-02-03] MEDS ORDERED: ONDANSETRON 4 MG/2 ML (SDV) Z0FRAN IVP ONE (03:45)
--- NOTE | 2020-02-03 03:55 | ED Abdominal Pain ---
General Chief Complaint: Abdominal/GI Problems Stated Complaint: SEVERE ABDONIMAL PAIN Source of Information: Patient Exam Limitations: No Limitations History of Present Illness Date Seen by Provider: Feb 03, 2020 Time Seen by Provider: 03:36 Initial Comments 54 yr old male who had cholecystectomy 2 days ago at [facility] presents with suddenly worsening generalized abd pain. He states that he has had pain since surgery but that it has become much worse tonight and has had associated severe nausea. No BM since surgery. No fever or chills. He does note pain with inspiration. He states that he took 2 hydrocodone (7.5mg apiece) approximately 20 minutes prior to arrival here. No blood in stool, vomiting or cough. No fever or chills. Timing/Duration: 4-6 Hours Severity/Quality: Severe Location: Generalized Abdomen Radiation: No Radiation Activities at Onset: None Modifying Factors: Improves With Breathing Associated Symptoms: Denies Symptoms Allergies and Home Medications Allergies Coded Allergies: No Known Drug Allergies (Unverified , 01/25/20) Home Medications Atorvastatin Calcium 40 Mg Tablet, 40 MG PO HS, (Reported) Hydrocodone/Acetaminophen 1 Each Tablet, 1-2 TAB PO Q4H Prescribed by: ESME DIXON on 02/01/20 1141 Pantoprazole Sodium 40 Mg Tablet.dr, 40 MG PO HS, (Reported) Sertraline HCl 50 Mg Tablet, 50 MG PO DAILY, (Reported) Sucralfate 1 Gm Tablet, 1 GM PO QID Prescribed by: ESME DIXON on 02/01/20 1141 Zolpidem Tartrate 10 Mg Tablet, 10 MG PO HS, (Reported) Patient Home Medication List Home Medication List Reviewed: Yes Review of Systems Review of Systems Constitutional: see HPI; No chills, No fever; malaise, weakness EENTM: No Symptoms Reported Respiratory: See HPI Cardiovascular: No Symptoms Reported Gastrointestinal: Abdomen Distended, Abdominal Pain; Denies Blood Streaked Stools, Denies Diarrhea; Nausea; Denies Poor Fluid Intake, Denies Rectal Bleeding Genitourinary: No Symptoms Reported Musculoskeletal: no symptoms reported Skin: no symptoms reported Psychiatric/Neurological: No Symptoms Reported Endocrine: No Symptoms Reported Hematologic/Lymphatic: No Symptoms Reported Past Jborumi-Bpqszd-Bvhugm Hx Past Med/Social Hx: Reviewed Nursing Past Med/Soc Hx Patient Social History Alcohol Beverage of Choice: Beer 2nd Hand Smoke Exposure: No Recent Foreign Travel: No Contact w/Someone Who Travel: No Recent Hopitalizations: No Immunizations Up To Date Date of Influenza Vaccine: Apr 17, 2019 Seasonal Allergies Seasonal Allergies: No Past Medical History Surgeries: Yes (UMBILICAL HERNIA, R KNEE SCOPE) Abdominal, Orthopedic Respiratory: Yes Sleep Apnea Currently Using CPAP: Yes (NOT VERY OFTEN) Cardiac: Yes High Cholesterol Neurological: No Reproductive Disorders: No Sexually Transmitted Disease: No HIV/AIDS: No Genitourinary: No Gastrointestinal: Yes Gastroesophageal Reflux, Chronic Diarrhea Musculoskeletal: Yes Chronic Back Pain Endocrine: No HEENT: Yes (GLASSES) Loss of Vision: Bilateral Hearing Impairment: Denies Cancer: Yes Skin Did You Recieve Any Treatments: Yes What Type of Treatment Did You: Surgical Intervention Psychosocial: Yes Anxiety, Depression Integumentary: No Blood Disorders: No Adverse Reaction/Blood Tranf: No (N/A) Family Medical History Cardiovascular disease 19 FATHER, , Age:50's - 60 19 MOTHER (Skin Cancer; CHF; Type 2 Diabetes; Sleep Apnea), , Age:60 years and older G8 BROTHER Congenital heart disease Diabetes mellitus 19 MOTHER (Skin Cancer; CHF; Type 2 Diabetes; Sleep Apnea), , Age:60 years and older Myocardial infarction G8 BROTHER CAD Under 55 Years Old Physical Exam Vital Signs Vital Signs - First Documented 02/03/20 03:35 Temp 36.4 Pulse 99 Resp 24 B/P (MAP) 140/94 (109) O2 Delivery Room Air Capillary Refill : Height/Weight/BMI Height: 5'7.00" Weight: 215lbs. 0.0oz. 97.534696bk; 35.98 BMI Method:Stated General Appearance: WD/WN, severe distress HEENT: PERRL/EOMI, normal ENT inspection, pharynx normal; No scleral icterus (R), No scleral icterus (L), No pale conjunctivae (R), No pale conjunctivae (L), No photophobia Neck: non-tender, full range of motion, supple, normal inspection Respiratory: chest non-tender, lungs clear, normal breath sounds, no respiratory distress, no accessory muscle use Cardiovascular: regular rate, rhythm, no edema, no gallop, no JVD, no murmur Gastrointestinal: no pulsatile mass, distended, guarding, tenderness, other (surgical sites slightly inflammed, bruising at umbillicus - possible Curry's sign) Extremities: normal range of motion, non-tender, normal inspection, no pedal edema, no calf tenderness Back: normal inspection, no CVA tenderness, no vertebral tenderness Neurologic/Psychiatric: rug setter velvet II-XII nml as tested, no motor/sensory deficits, alert, normal mood/affect, oriented x 3 Skin: normal color, warm/dry Lymphatic: no adenopathy Focused Exam Lactate Level 02/03/20 03:50: Lactic Acid Level 1.69 Lactic Acid Level Laboratory Tests Test 02/03/20 03:50 Lactic Acid Level 1.69 MMOL/L (0.50-2.00) Progress/Results/Core Measures Results/Orders Lab Results Laboratory Tests Test 02/03/20 03:50 02/03/20 04:52 Range/Units White Blood Count 14.4 H 4.3-11.0 10^3/uL Red Blood Count 4.81 4.35-5.85 10^6/uL Hemoglobin 15.3 13.3-17.7 G/DL Hematocrit 45 40-54 % Mean Corpuscular Volume 93 80-99 FL Mean Corpuscular Hemoglobin 32 25-34 PG Mean Corpuscular Hemoglobin Concent 34 32-36 G/DL Red Cell Distribution Width 13.0 10.0-14.5 % Platelet Count 267 130-400 10^3/uL Mean Platelet Volume 8.4 7.4-10.4 FL Neutrophils (%) (Auto) 66 42-75 % Lymphocytes (%) (Auto) 16 12-44 % Monocytes (%) (Auto) 13 H 0-12 % Eosinophils (%) (Auto) 5 0-10 % Basophils (%) (Auto) 1 0-10 % Neutrophils # (Auto) 9.4 H 1.8-7.8 X 10^3 Lymphocytes # (Auto) 2.3 1.0-4.0 X 10^3 Monocytes # (Auto) 1.9 H 0.0-1.0 X 10^3 Eosinophils # (Auto) 0.7 H 0.0-0.3 10^3/uL Basophils # (Auto) 0.1 0.0-0.1 10^3/uL Neutrophils % (Manual) 68 % Lymphocytes % (Manual) 14 % Monocytes % (Manual) 16 % Eosinophils % (Manual) 2 % Sodium Level 138 135-145 MMOL/L Potassium Level 3.7 3.6-5.0 MMOL/L Chloride Level 98 98-107 MMOL/L Carbon Dioxide Level 27 21-32 MMOL/L Anion Gap 13 5-14 MMOL/L Blood Urea Nitrogen 10 7-18 MG/DL Creatinine 1.25 0.60-1.30 MG/DL Estimat Glomerular Filtration Rate 60 BUN/Creatinine Ratio 8 Glucose Level 137 H 70-105 MG/DL Lactic Acid Level 1.69 0.50-2.00 MMOL/L Calcium Level 9.2 8.5-10.1 MG/DL Corrected Calcium 8.9 8.5-10.1 MG/DL Total Bilirubin 0.5 0.1-1.0 MG/DL Aspartate Amino Transf (AST/SGOT) 95 H 5-34 U/L Alanine Aminotransferase (ALT/SGPT) 155 H 0-55 U/L Alkaline Phosphatase 87 40-136 U/L Total Protein 7.2 6.4-8.2 GM/DL Albumin 4.4 3.2-4.5 GM/DL Lipase 48 8-78 U/L Urine Color STRAW Urine Clarity CLEAR Urine pH 7.0 5-9 Urine Specific Morrison <=1.005 1.016-1.022 Urine Protein NEGATIVE NEGATIVE Urine Glucose (UA) NEGATIVE NEGATIVE Urine Ketones NEGATIVE NEGATIVE Urine Nitrite NEGATIVE NEGATIVE Urine Bilirubin NEGATIVE NEGATIVE Urine Urobilinogen 0.2 < = 1.0 MG/DL Urine Leukocyte Esterase NEGATIVE NEGATIVE Urine RBC (Auto) NEGATIVE NEGATIVE Urine RBC NONE /HPF Urine WBC NONE /HPF Urine Squamous Epithelial Cells 2-5 /HPF Urine Crystals NONE /LPF Urine Bacteria NEGATIVE /HPF Urine Casts NONE /LPF Urine Mucus NEGATIVE /LPF Urine Culture Indicated NO My Orders Orders - GEORGINA GARCIA MD Morphine Injection (Morphine Injection (02/03/20 03:45) Ondansetron Injection (Zofran Injectio (02/03/20 03:45) Ed Iv/Invasive Line Start (02/03/20 03:45) Comprehensive Metabolic Panel (02/03/20 03:45) Lipase (02/03/20 03:45) Cbc With Automated Diff (02/03/20 03:45) Ct Abdomen/Pelvis W (02/03/20 03:45) Ekg Tracing (02/03/20 03:45) Lactic Acid Analyzer (02/03/20 03:45) Iohexol Injection (Omnipaque 350 Mg/Ml 1 (02/03/20 04:00) Received Contrast (Hold Metformin- Contr (02/03/20 04:00) Ns (Ivpb) (Sodium Chloride 0.9% Ivpb Bag (02/03/20 04:00) Chest 1 View Ap/Pa Only (02/03/20 03:52) Manual Differential (02/03/20 03:50) Oxygen-Administer 07,19 (02/03/20 04:33) Ua Culture If Indicated (02/03/20 04:44) Medications Given in ED Current Medications Medications Dose Ordered Sig/Isha Route Start Time Stop Time Status Last Admin Dose Admin Iohexol 100 ml ONCE ONCE IV 02/03/20 04:00 02/03/20 04:01 DC 02/03/20 04:10 100 ML Morphine Sulfate 2 mg ONCE ONCE IVP 02/03/20 03:45 02/03/20 03:50 DC 02/03/20 03:59 2 MG Ondansetron HCl 4 mg ONCE ONCE IVP 02/03/20 03:45 02/03/20 03:50 DC 02/03/20 03:59 4 MG Sodium Chloride 100 ml ONCE ONCE IV 02/03/20 04:00 02/03/20 04:01 DC 02/03/20 04:10 100 ML Vital Signs/I&O 02/03/20 03:35 Temp 36.4 Pulse 99 Resp 24 B/P (MAP) 140/94 (109) O2 Delivery Room Air Progress Progress Note : Time: 03:57 Progress Note Due to pain post-op, will obtain CT, lactic acid, lipase and routine lab to include CXR. Will cautiously treat pain as he has just taken 15mg hydrocodone and will treat nausea. He is hemodynamically stable. Discussed with patient who understands and agrees with plan. 0410 Pain improved after morphine/zofran. To CT. Discussed with patient. WBC elevated, awaiting chemistries and radiographic studies. 0500 Pain markedly improved. Discussed findings of CT (normal postop) and lab results. With pain substantially resolved, no further evaluation warranted at this time. He believes that he will be able to go home. Will monitor a little longer and plan to discharge if continues improved. 0535 Feeling much better. Wants to go home. Given precautions if pain reoccurs. Initial ECG Impression Date: Feb 03, 2020 Initial ECG Impression Time: 04:07 Initial ECG Rhythm: Normal Sinus Initial ECG Intervals: Normal Initial ECG Impression: Normal Initial ECG Comparisson: No Previous ECG Available Diagnostic Imaging Diagonstic Imaging: CT Plain Films/CT/US/NM/MRI: abdomen Comments Status post recent cholecystectomy with expected postoperative changes in the anterior abdominal wall and RUQ. Fluid in the gallbladder fossa extending inferiorly, likely postoperative, although bile leak cannot be definitively excluded. Foci of free air, likely postoperative. Nuclear medicine HIDA may be obtained for further evaluation, if clinically indicated. 2. Hepatic steatosis. Dr. Tono Dale Reviewed: Reviewed [place] Hawk Study, Reviewed/Discussed Departure Impression Primary Impression: Abdominal pain Qualified Codes: R10.84 - Generalized abdominal pain Additional Impression: Nausea and vomiting Qualified Codes: R11.14 - Bilious vomiting Disposition: 01 HOME, SELF-CARE Condition: Improved Departure-Patient Inst. Decision time for Depature: 05:35 Referrals: GEORGINA MEDINA MD (PCP/Family) Primary Care Physician Patient Instructions: Severe Abdominal Pain, Adult (DC), No Instuctions Given GEORGINA GARCIA MD Feb 03, 2020 03:55
[2020-02-03 03:57] LABS: BASOPHILS % (AUTO) 1 % (0-10); EOSINOPHILS % (AUTO) 5 % (0-10); HEMATOCRIT 45 % (40-54); HEMOGLOBIN 15.3 G/DL (13.3-17.7); LYMPHOCYTES # (AUTO) 2.3 X 10^3 (1.0-4.0); LYMPHOCYTES % (AUTO) 16 % (12-44); MEAN CORPUSCULAR HEMOGLOBIN 32 PG (25-34); MEAN CORPUSCULAR HGB CONC 34 G/DL (32-36); MEAN CORPUSCULAR VOLUME 93 FL (80-99); MEAN PLATELET VOLUME 8.4 FL (7.4-10.4); MONOCYTES % (AUTO) 13 % (0-12); NEUTROPHILS # (AUTO) 9.4 X 10^3 (1.8-7.8); NEUTROPHILS % (AUTO) 66 % (42-75); PLATELET COUNT 267 10^3/uL (130-400); WHITE BLOOD COUNT 14.4 10^3/uL (4.3-11.0)
[2020-02-03 03:58] LABS: BASOPHILS # (AUTO) 0.1 10^3/uL (0.0-0.1); EOSINOPHILS # (AUTO) 0.7 10^3/uL (0.0-0.3); MONOCYTES # (AUTO) 1.9 X 10^3 (0.0-1.0)
[2020-02-03] MEDS ORDERED: NS 100 ML (IVPB) BAG IV ONE (04:00)
[2020-02-03] MEDS ORDERED: IOHEXOL 350 MG/ML 100 ML (OMNIPAQUE 350) VIAL IV ONE (04:00)
[2020-02-03] MEDS ORDERED: HOLD METFORMIN - RECEIVED CONTRAST 20 ML VIAL IV SCH (04:00)
[2020-02-03 04:17] LABS: EOSINOPHILS % (MANUAL) 2 %; LYMPHOCYTES % (MANUAL) 14 %; MONOCYTES % (MANUAL) 16 %; NEUTROPHILS % (MANUAL) 68 %
[2020-02-03 04:23] LABS: ALBUMIN 4.4 GM/DL (3.2-4.5); BILIRUBIN,TOTAL 0.5 MG/DL (0.1-1.0); CALCIUM 9.2 MG/DL (8.5-10.1); CREATININE SERUM 1.25 MG/DL (0.60-1.30); POTASSIUM 3.7 MMOL/L (3.6-5.0); TOTAL PROTEIN 7.2 GM/DL (6.4-8.2)
--- NOTE | 2020-02-03 04:37 | NUR ---
PT. REPORTED FEELING BETTER.
--- NOTE | 2020-02-03 04:43 | NUR ---
PT. PLACED ON AT 2L PER NC
[2020-02-03 04:55] LABS: CLARITY,URINE CLEAR; COLOR,URINE STRAW
[2020-02-03 04:58] LABS: BACTERIA,URINE NEGATIVE /HPF; BILIRUBIN,URINE NEGATIVE (NEGATIVE); GLUCOSE, URINE (UA) NEGATIVE (NEGATIVE); KETONES,URINE NEGATIVE (NEGATIVE); LEUKOCYTE ESTERASE ,URINE NEGATIVE (NEGATIVE); NITRITE,URINE NEGATIVE (NEGATIVE); PROTEIN,URINE NEGATIVE (NEGATIVE)
[2020-02-03 05:37] VITALS: BP 144/90
--- NOTE | 2020-02-03 06:30 | Diagnostic Imaging Report ---
INDICATION: Postoperative pain COMPARISON: 01/16/2019 TECHNIQUE: Single radiograph of the chest dated 02/03/2020. FINDINGS: The cardiac silhouette is mildly enlarged. Mild central pulmonary vascular congestion. Low lung volumes though the lungs are clear of focal pulmonary opacity. No pleural effusion. No pneumothorax. No acute osseous abnormality. IMPRESSION: Low lung volumes with accentuation of the cardiac silhouette and pulmonary vasculature. Dictated by: Dictated on workstation # [id number]
--- NOTE | 2020-02-03 06:40 | Diagnostic Imaging Report ---
PROCEDURE: CT abdomen and pelvis with contrast. TECHNIQUE: Multiple contiguous axial images were obtained through the abdomen and pelvis after administration of intravenous contrast. Auto Exposure Controls were utilized during the CT exam to meet ALARA standards for radiation dose reduction. INDICATION: Postoperative pain status post cholecystectomy COMPARISON: None available FINDINGS: Mild dependent atelectasis. Diffusely decreased density of the liver, related to fatty infiltration of the liver. The liver is otherwise unremarkable. The spleen is unremarkable. The pancreas is unremarkable. Right renal cyst. Otherwise, the kidneys and ureters are unremarkable. Cholecystectomy, recent in nature. This is associated with soft tissue gas within the anterior abdominal wall. Additionally, minimal punctate intraperitoneal free air is also present. Fluid and fat stranding is noted within the gallbladder fossa slightly extending in the right paracolic gutter. No intra or extrahepatic biliary dilatation. Main portal vein appears patent. Mild vascular calcifications. No aneurysmal dilatation of the abdominal aorta. The urinary bladder is unremarkable. The prostate gland is mildly enlarged. The appendix is unremarkable. No bowel obstruction or pneumatosis. Small fat-containing supraumbilical anterior abdominal wall hernia. No significant adenopathy. Scattered osseous degenerative changes without acute osseous abnormality. IMPRESSION: Findings consistent with a recent cholecystectomy. Fluid and fat stranding within the gallbladder fossa extending inferiorly is present which likely relates to postsurgical changes. Bile leak is not totally excluded. If further evaluation is desired, nuclear medicine hepatobiliary imaging scan would be recommended. Fatty infiltration of the liver. Additional findings as described above. Agree with prominent interpretation. Dictated by: Dictated on workstation # [id number]
== END 2020-02-03 05:40 | disposition home or self-care (01) ==
LOC: EDUNIT# 03:35 → ER FS 03:38
DX: S30.1XXA Contusion of abdominal wall, initial encounter (principal); R11.2 Nausea with vomiting, unspecified; E78.00 Pure hypercholesterolemia, unspecified; K21.9 Gastro-esophageal reflux disease without esophagitis; G89.29 Other chronic pain; M54.9 Dorsalgia, unspecified; F41.9 Anxiety disorder, unspecified; F32.9 Major depressive disorder, single episode, unspecified; Z85.828 Personal history of other malignant neoplasm of skin; Z79.891 Long term (current) use of opiate analgesic; Z90.49 Acquired absence of other specified parts of digestive tract; Z82.49 Family history of ischemic heart disease and other diseases of the circulatory system; X58.XXXA Exposure to other specified factors, initial encounter
CPT/HCPCS: 36415; 71045; 74177; 80053; 81000; 83605; 83690; 85007; 85027; 93005

== ENCOUNTER → 2020-02-19 | Outpatient (CLI) | payer BC ==
--- NOTE | 2020-02-19 10:01 | Diagnostic Imaging Report ---
INDICATION: Left knee pain. TIME OF EXAM: 9:35 AM. FINDINGS: Three views of the left knee were obtained. 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 The joint spaces are well maintained. The articular surfaces are smooth. No fracture, dislocation, or effusion is identified. IMPRESSION: No acute bony abnormality is detected. 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 Dictated by: Dictated on workstation # [id number]
--- NOTE | 2020-02-20 08:00 | Anesthesia-General Post-Op ---
General Significant Intra-Op Events Notes addendum 02-01-20 at 1245 Patient Condition Mental Status/LOC: Same as Preop Cardiovascular: Satisfactory Nausea/Vomiting: Absent Respiratory: Satisfactory Pain: Controlled Complications: Absent Post Op Complications Complications None Follow Up Care/Instructions Patient Instructions None needed. Anesthesia/Patient Condition Patient Condition Patient is doing well, no complaints, stable vital signs, no apparent adverse anesthesia problems. No complications reported per nursing. PAM EL CRNA Feb 20, 2020 08:00
== END ==
LOC: RAD FS 09:23
PROVIDERS: ATTEND Nurse Practitioner
DX: Q74.1 Congenital malformation of knee (principal)
CPT/HCPCS: 73562

== ENCOUNTER 2021-03-13 10:10 | Outpatient (CLI) | payer BC ==
[~2021-03-13] VITALS: Ht 170.2 cm; Wt 102.2 kg
[~2021-03-13 10:10] MED LIST changes: -PANT40TA3 PO; +PANT40TA52 PO; +SERT-413 PO; -SERT50TA9 PO
[2021-03-13] MEDS ORDERED: ZOLP10TA PO (14:48)
== END 2021-03-13 14:59 ==
LOC: PREOP 10:10
PROVIDERS: ATTEND Surgery
DX: Z01.818 Encounter for other preprocedural examination (principal)

== ENCOUNTER 2021-03-20 11:48 | Day surgery (SDC) | payer BC ==
[2021-03-20] VITALS (10 sets, daily range): BP systolic 110–140; BP diastolic 74–91
[~2021-03-20] VITALS: Ht 170.2 cm; Wt 102.2 kg
[~2021-03-20 11:48] MED LIST changes: +ZOLP10TA PO
--- NOTE | 2021-03-20 12:01 | Progress Note-Pre Operative ---
Pre-Operative Progress Note H&P Reviewed The H&P was reviewed, patient examined and no changes noted. Date Seen by Provider: Mar 20, 2021 Time Seen by Provider: 12:00 Date H&P Reviewed: Mar 20, 2021 Time H&P Reviewed: 11:55 Pre-Operative Diagnosis: Ventral abdominal incisional hernia ESME DIXON APRN Mar 20, 2021 12:01
[2021-03-20] MEDS ORDERED: HYDR-3817 PO (12:02)
--- NOTE | 2021-03-20 12:03 | Discharge Inst-Surgical ---
D/C Lap Instructions-KIDO Reconcile Patient Problems Problems Reviewed?: Yes New, Converted, or Re-Newed RX: RX on Chart Follow Up Appt in 2 weeks Activity as tolerated No driving for 24 hours No driving while on pain medications Incentive Spirometry use every 2 hours while awake Regular Diet Symptoms to Report: Fever over 101 degree F, Nausea/Vomiting Infection Signs and Symptoms to report: Increased redness, Foul odor of wound, Increased drainage Bathing instructions: May shower Operative Area Clean/Dry; Keep incision clean/dry If any problems/questions: Contact your physician or go to Emergency Room ESME DIXON APRN Mar 20, 2021 12:03
--- OUTSIDE RECORDS SUMMARY | 2021-03-20 12:06 | XMS REPORT | Clinical Summary ---
Author Author [facility] Organization [facility] Address Unknown Phone Unavailable Care Team Providers Care [address] Justice Name Role Phone Arnie Lo MD PCP Source Comments Some departments are not documenting in the electronic medical record. If you d o not see the information that you expected, contact Release of Information in [facility] [employer] Information Management department at [phone] for further assistan ce in locating additional records.[facility] Allergies Not on File Medications Not on file Active Problems Not on file Social History Date Tobacco Use Types Packs/Day Years Used Never Assessed Sex Assigned at Date Recorded Not on file Last Filed Vital Signs Not on file Plan of Treatment Health Maintenance Due Date Last Done Comments HIV SCREENING 1978 DTAP/TDAP VACCINES (1 - 1981 Tdap) HEPATITIS C SCREENING 1981 PHYSICAL (COMPREHENSIVE) 1981 EXAM COLORECTAL CANCER 2013 SCREENING SHINGLES RECOMBINANT 2013 VACCINE (1 of 2) INFLUENZA VACCINE 04/11/2021 05/30/2018 Results Not on filefrom Last 3 Months Insurance Type Payer Benefit Subscriber ID Effective Phone Address Plan / Dates Group PPO BCBS [facility] [id number] 2018- [facility] Present BLUE [id number] (Home) [place] [phone] Advance Directives Patient Kier Boiler Explanation Type Date Recorded Advance Directive/DPOA
[2021-03-20] MEDS: LACTATED RINGERS 1,000 ML IV PRN ×2 (12:10→16:14)
[2021-03-20] MEDS ORDERED: morphine INJ 10 MG/ML 1ML (SYR OR VIAL) IVP PRN (12:15)
[2021-03-20] MEDS ORDERED: ACETAMINOPHEN 325 MG TABLET PO PRN (12:15)
[2021-03-20] MEDS ORDERED: ONDANSETRON 4 MG/2 ML (SDV) Z0FRAN IVP PRN ×2 (12:15→15:45)
[2021-03-20] MEDS ORDERED: HYDROcodone/APAP 5 MG/325 MG (LORTAB) TAB PO ONE (12:15)
[2021-03-20] MEDS ORDERED: ceFAZolin 2 GM IV Premixed 50 ML IV ONE (12:15)
--- NOTE | 2021-03-20 13:34 | Progress Note-Pre Operative ---
Pre-Operative Progress Note H&P Reviewed The H&P was reviewed, patient examined and no changes noted. Date Seen by Provider: Mar 20, 2021 Time Seen by Provider: 13:00 Date H&P Reviewed: Mar 20, 2021 Time H&P Reviewed: 13:00 Pre-Operative Diagnosis: reducible ventral abd inc hernia RACHNA PEARSON MD Mar 20, 2021 13:34
[2021-03-20] MEDS ORDERED: LIDOCAINE/EPI 1%-1:200,000 (XYLOCAINE) 30 ML VIAL ONE (14:27)
[2021-03-20] MEDS ORDERED: ONDANSETRON 4 MG/2 ML (SDV) Z0FRAN ONE (14:41)
[2021-03-20] MEDS ORDERED: LIDOCAINE PF 2% 5 ML (XYLOCAINE) VIAL ONE (14:41)
[2021-03-20] MEDS ORDERED: ROCURONIUM 10 MG/ML 5 ML SYRINGE IV ONE (14:41)
[2021-03-20] MEDS ORDERED: fentaNYL INJ 100 MCG/2 ML AMP ONE ×2 (14:41→15:41)
[2021-03-20] MEDS ORDERED: SUCCINYLCHOLINE INJ 100 MG/5 ML SYR/VIAL ONE (14:41)
[2021-03-20] MEDS ORDERED: proPOfol 200 MG/20 ML (DIPRIVAN) VIAL IV ONE (14:41)
[2021-03-20] MEDS ORDERED: MIDAZOLAM 2 MG/2 ML (VERSED) VIAL ONE (14:42)
--- NOTE | 2021-03-20 15:24 | Progress Note-Post Operative ---
Post-Operative Progess Note Surgeon (s)/Chief Knowledge Officer (s) Surgeon RACHNA PEARSON MD Chief Knowledge Officer: makeda macedo [employer] Pre-Operative Diagnosis reducible ventral abd inc hernia Post-Operative Diagnosis same(2.5cm) Procedure & Operative Findings Date of Procedure 03/20/21 Procedure Performed/Findings open ventral abd inc hernia repair with mesh. Anesthesia Type get Estimated Blood Loss Estimated blood loss (mL): minimal Specimens/Packing Specimens Removed none RACHNA PEARSON MD Mar 20, 2021 15:24
[2021-03-20] MEDS ORDERED: SEVOFLURANE (ULTANE) 15 ML INHAL SOLN ONE (15:34)
--- NOTE | 2021-03-20 15:42 | Anesthesia-General Post-Op ---
General Patient Condition Mental Status/LOC: Same as Preop Cardiovascular: Satisfactory Nausea/Vomiting: Absent Respiratory: Satisfactory Pain: Controlled Complications: Absent Post Op Complications Complications None Follow Up Care/Instructions Patient Instructions None needed. Anesthesia/Patient Condition Patient Condition Patient is doing well, no complaints, stable vital signs, no apparent adverse anesthesia problems. No complications reported per nursing. MELISSA RODRIGUEZ CRNA Mar 20, 2021 15:42
[2021-03-20] MEDS ORDERED: fentaNYL INJ 100 MCG/2 ML AMP IVP ONE (15:45)
[2021-03-20] MEDS ORDERED: morphine INJ 10 MG/ML 1ML (SYR OR VIAL) IVP ONE (15:45)
--- NOTE | 2021-03-21 01:31 | OPERATIVE REPORT ---
DATE OF SERVICE: 03/20/2021 ATTENDING PRIMARY CARE PHYSICIAN: Dr. Arnie Lo. PREOPERATIVE DIAGNOSIS: Symptomatic reducible ventral abdominal incisional hernia. POSTOPERATIVE DIAGNOSIS: Symptomatic reducible ventral abdominal incisional hernia. PROCEDURE: Open ventral abdominal incisional hernia repair with mesh. SURGEON: Rachna Pearson MD. CHIP UNLOADER: Oracio Pretty APRN. ANESTHESIA: General endotracheal. ESTIMATED BLOOD LOSS: Minimal. FINDINGS: Incisional hernia approximately 1.5 cm in size with omentum within the hernia sac. DISPOSITION: The patient tolerated the procedure well. INDICATIONS: The patient is a 56-year-old male who underwent a laparoscopic cholecystectomy 01/2020. Approximately 4 months ago, he noticed a small outpouching in the supraumbilical region, which grew larger in size and became painful. He was seen in the office and found to have a ventral abdominal incisional hernia, which was reducible; however, tender to palpation. DESCRIPTION OF PROCEDURE: The patient was brought to the operating room, laid supine on the table. After adequate IV pain and sedative medications and general endotracheal intubation, the abdomen was prepped and draped in standard surgical fashion. The supraumbilical rim was then anesthetized using 0.5% Marcaine with epinephrine. A crescent-shaped skin incision along the previous scar was then made using 15 blade. Subcutaneous tissue was then dissected using electrocautery. The hernia sac was identified and completely dissected down to the fascia using electrocautery. The hernia sac was excised under direct visualization using electrocautery. The omentum reduced back into the peritoneal cavity. The fascial defect was approximately 1.5 cm in size and a 6.4 coated polypropylene mesh was then placed into the defect and sutured concentrically in a transfascial manner using 0 Prolene interrupted sutures. Good hemostasis was observed. The subcutaneous tissue was then reapproximated using 3-0 Vicryl interrupted sutures. Skin was closed using 4-0 Monocryl running subcuticular suture. Wound was then cleaned and covered with Dermabond. The umbilicus was then filled with tonsil sponges followed by 4 x 4 gauze followed by large Op-Site followed by abdominal binder. The patient tolerated the procedure well. We will start IV normal pain medication as well as a clear liquid diet. Once he is tolerating clears, has good pain control with oral pain medications, ambulating well, we will discharge him home. He is on no heavy lifting or exertion for the next two weeks as well as continue to wear his abdominal binder for the next two weeks. Job ID: [id number] DocumentID: [id number] Dictated Date: 03/20/2021 15:31:20 [employer] Developer Date: 03/21/2021 01:31:03 Dictated By: RACHNA PEARSON MD
== END 2021-03-20 17:50 | disposition home or self-care (01) ==
LOC: SDC 11:48
PROVIDERS: ATTEND Surgery
DX: K43.2 Incisional hernia without obstruction or gangrene (principal); Z11.2 Encounter for screening for other bacterial diseases; K21.00 Gastro-esophageal reflux disease with esophagitis, without bleeding; I25.10 Atherosclerotic heart disease of native coronary artery without angina pectoris; E78.00 Pure hypercholesterolemia, unspecified; K22.70 Barrett's esophagus without dysplasia; F41.9 Anxiety disorder, unspecified; F32.9 Major depressive disorder, single episode, unspecified; G47.30 Sleep apnea, unspecified; Z79.899 Other long term (current) drug therapy
CPT/HCPCS: 87081

== ENCOUNTER 2021-06-20 10:50 | Outpatient (CLI) | payer BC ==
[~2021-06-20] VITALS: Ht 170.2 cm; Wt 95.9 kg
[~2021-06-20 10:50] MED LIST changes: +HYDR-3817 PO
[2021-06-20] MEDS ORDERED: BAMLANIVIMAB 700 MG/ETESEVIMAB 1,400 MG IN NS IV ONE ×3 (11:15)
[2021-06-20] MEDS ORDERED: EPINEPHrine INJECTION 1 MG/ML AMP IM PRN (11:15)
[2021-06-20] MEDS ORDERED: ONDANSETRON 4 MG/2 ML (SDV) Z0FRAN IV PRN (11:15)
[2021-06-20] MEDS ORDERED: ACETAMINOPHEN 500 MG TAB (TYLENOL) PO PRN (11:15)
[2021-06-20] MEDS ORDERED: diphenhydrAMINE 50 MG/ML INJ (BENADRYL) IV PRN (11:15)
[2021-06-20 12:39] VITALS: BP 116/71
[2021-06-20 13:00] VITALS: BP 126/66
== END 2021-06-20 13:05 | disposition home or self-care (01) ==
LOC: INFUSION 10:50
PROVIDERS: ATTEND Registered Nurse
DX: U07.1 COVID-19 (principal)

== ENCOUNTER → 2021-07-18 | Outpatient (CLI) | payer BC ==
--- NOTE | 2021-07-18 15:59 | Diagnostic Imaging Report ---
PROCEDURE: CT head without contrast. TECHNIQUE: Multiple contiguous axial images were obtained through the brain without the use of intravenous contrast. Auto Exposure Controls were utilized during the CT exam to meet ALARA standards for radiation dose reduction. INDICATION: Confusion. EXAMINATION: CT brain without contrast, 07/18/2021. FINDINGS: There is no evidence for acute hemorrhage or infarct. There is no mass, mass effect, midline shift or hydrocephalus. The paranasal sinuses and mastoid air cells demonstrate no acute abnormality. IMPRESSION: No acute intracranial process. Dictated by: Dictated on workstation # [id number]
== END ==
LOC: RAD FS 14:56
PROVIDERS: ATTEND Nurse Practitioner Family
DX: R41.0 Disorientation, unspecified (principal); R51.9 Headache, unspecified
CPT/HCPCS: 70450

== ENCOUNTER → 2021-07-30 | Outpatient (CLI) | payer BC ==
[~2021-07-30] MED LIST changes: +GADOTERATE 0.5 MMOL/ML (CLARISCAN) 20 ML VIAL IV ONE
--- NOTE | 2021-07-30 16:12 | Diagnostic Imaging Report ---
PROCEDURE: MR imaging of the brain with and without contrast. TECHNIQUE: Multiplanar, multisequence MR imaging of the brain was performed with and without contrast. INDICATION: Confusion. COMPARISON: 07/18/2021. FINDINGS: No acute ischemia, mass, or hemorrhage. No abnormal enhancement. Scattered T2 hyperintense signal is seen in the periventricular and subcortical white matter. The ventricles, cortical sulci, and basilar cisterns are symmetric and unremarkable. The sellar and suprasellar regions have a normal appearance. The brainstem and posterior fossa are unremarkable. The paranasal sinuses and mastoid air cells demonstrate normal signal characteristics. The globes and orbits are symmetric and unremarkable. The scalp and calvarium have a normal appearance. IMPRESSION: 1. No acute ischemia, mass or hemorrhage. No abnormal enhancement. 2. Scattered chronic microvascular disease in the periventricular and subcortical white matter, likely representing chronic microvascular disease versus sequelae of migraine. Dictated by: Dictated on workstation # [id number]
== END ==
LOC: RAD 14:45
PROVIDERS: ATTEND Nurse Practitioner Family
DX: I67.82 Cerebral ischemia (principal)
CPT/HCPCS: 70553

== ENCOUNTER → 2021-08-25 | Outpatient (CLI) | payer BC ==
[~2021-08-25] MED LIST changes: -GADOTERATE 0.5 MMOL/ML (CLARISCAN) 20 ML VIAL IV ONE
--- NOTE | 2021-08-25 09:58 | Diagnostic Imaging Report ---
PROCEDURE: US carotid duplex, bilateral. TECHNIQUE: Multiple real-time grayscale images were obtained over the carotid arteries in various projections, bilaterally. Additional spectral analysis and color Doppler duplex images were also obtained. INDICATION: Dizziness and confusion. FINDINGS: Real-time imaging with Doppler sampling. Carotid arteries show very minimal atherosclerotic plaquing. There is antegrade flow throughout both carotid arteries and vertebral arteries. Waveforms and peak velocities are normal. Carotid ratios are normal. IMPRESSION: No evidence of hemodynamic stenosis. Minimal atherosclerotic changes are noted bilaterally. Parameters based on the consensus panel Lott-Scale and Doppler ultrasound criteria published May 2003, Radiology, Volume 229. DOPPLER (peak systolic velocity M/S Right Left CCA 1.1 1.4 ICA Proximal .86 .73 ICA Mid 1.2 .74 ICA Distal 1.1 .80 RATIO 1.0 .57 ECA 1.1 1.1 VERT .34 .73 Dictated by: Dictated on workstation # [id number]
== END ==
LOC: CARD 08:18
PROVIDERS: ATTEND Nurse Practitioner Family
DX: R42 Dizziness and giddiness (principal); R41.0 Disorientation, unspecified; I99.8 Other disorder of circulatory system
CPT/HCPCS: 93306; 93880

== ENCOUNTER → 2022-11-03 | Outpatient (CLI) | payer BC ==
--- NOTE | 2022-11-03 17:19 | Diagnostic Imaging Report ---
Indication: Back pain. Time of Exam: 3:38 PM AP, lateral and swimmer's views of the thoracic spine were obtained. There is normal thoracic kyphotic curvature. Vertebral body heights are maintained. No definite acute compression fracture is seen. There is multilevel degenerative disc disease with variable disc space narrowing and marginal spurring. The pedicles are intact. Paraspinous line is intact. IMPRESSION: Thoracic spondylosis. No acute bony abnormality is detected. Dictated by: Dictated on workstation # [id number]
--- NOTE | 2022-11-03 17:23 | Diagnostic Imaging Report ---
EXAMINATION: Lumbar spine radiographs, 3 views. COMPARISON: None. HISTORY: 57-year-old male, low back pain. FINDINGS: There are 5 lumbar-type vertebral bodies. There is no identified compression deformity or fracture. There is moderate disc height loss at L3-L4, L4-L5, and L5-S1. There are multilevel endplate degenerative related changes of the thoracic and lumbar spine. There are mild facet degenerative changes at L4-L5 and L5-S1. The sacroiliac joints are unremarkable in appearance. IMPRESSION: 1. Moderate disc degenerative changes at L3-L4, L4-L5, and L5-S1 with additional multilevel mild disc degenerative changes of the thoracolumbar spine. 2. Mild facet degenerative changes bilaterally at L4-L5 and L5-S1 3. No identified compression deformity or fracture. Dictated by: Dictated on workstation # [id number]
== END ==
LOC: RAD 14:52
PROVIDERS: ATTEND Surgery
DX: M47.814 Spondylosis without myelopathy or radiculopathy, thoracic region (principal); M47.816 Spondylosis without myelopathy or radiculopathy, lumbar region; M47.817 Spondylosis without myelopathy or radiculopathy, lumbosacral region
CPT/HCPCS: 72072; 72100